=== PATIENT | male | born 1940 | race Caucasian/White ===

== ENCOUNTER 2022-08-12 09:16 | Emergency (ER) | payer OTHER ==
[~2022-08-12] VITALS: Ht 180.3 cm; Wt 99.8 kg
[2022-08-12 09:49] LABS: BASOPHILS ABSOLUTE AUTO 0.04 K/mm3 (0.00-0.23); BASOPHILS PERCENT AUTO 1 % (0-2); EOSINOPHILS ABSOLUTE AUTO 0.15 K/mm3 (0.00-0.68); EOSINOPHILS PERCENT AUTO 2 % (0-6); Hematocrit 43.3 % (37.0-53.0); Hemoglobin 14.8 g/dL (13.5-17.5); IMMATURE GRAN ABSOLUTE AUTO 0.03 K/mm3 (0.00-0.10); IMMATURE GRAN PERCENT AUTO 0 % (0-1); LYMPHOCYTES ABSOLUTE AUTO 1.69 K/mm3 (0.84-5.20); LYMPHOCYTES PERCENT AUTO 23 % (21-46); MONOCYTES ABSOLUTE AUTO 0.57 K/mm3 (0.16-1.47); MONOCYTES PERCENT AUTO 8 % (4-13); Mean Corpuscular HGB 31.1 pg (26.0-34.0); Mean Corpuscular HGB Conc 34.2 g/dL (31.5-36.5); Mean Corpuscular Volume 91 fL (80-100); Mean Platelet Volume 8.7 fL (9.1-12.4); NEUTROPHILS ABSOLUTE AUTO 4.74 K/mm3 (1.96-9.15); NEUTROPHILS PERCENT AUTO 66 % (41-73); Platelet Count 246 K/mm3 (150-400); RDW Standard Deviation 43.4 fL (35.1-46.3); Red Blood Cell Count 4.76 M/mm3 (4.30-5.90); White Blood Cell Count 7.22 K/mm3 (4.00-11.30)
[2022-08-12 10:22] LABS: Albumin, Blood 3.2 g/dL (3.4-5.0); Bilirubin, Total 0.8 mg/dL (0.1-1.0); Bun/Creatinine Ratio 22.5 (12.0-20.0); Calcium, Blood 8.2 mg/dL (8.5-10.1); Creatinine, Blood 0.71 mg/dL (0.60-1.20); Globulin, Blood 3.2 g/dL (2.2-4.0); Potassium, Blood 4.1 mmol/L (3.5-5.5); Total Protein, Blood 6.4 g/dL (6.4-8.2)
[2022-08-12] MEDS ORDERED: DIPATR PO (12:37)
== END 2022-08-12 12:48 | disposition home or self-care (01) ==
LOC: ER 09:16
PROVIDERS: Physician Assistant
DX: A08.4 Viral intestinal infection, unspecified (principal)
CPT/HCPCS: 80053; 85025

== ENCOUNTER 2022-08-25 08:31 | Emergency (ER) | payer OTHER ==
[~2022-08-25] VITALS: Ht 177.8 cm; Wt 108.9 kg
[~2022-08-25 08:31] MED LIST: DIPATR PO
[2022-08-25 10:21] LABS: BASOPHILS ABSOLUTE AUTO 0.05 K/mm3 (0.00-0.23); BASOPHILS PERCENT AUTO 1 % (0-2); EOSINOPHILS ABSOLUTE AUTO 0.14 K/mm3 (0.00-0.68); EOSINOPHILS PERCENT AUTO 2 % (0-6); Hematocrit 50.8 % (37.0-53.0); Hemoglobin 17.5 g/dL (13.5-17.5); IMMATURE GRAN ABSOLUTE AUTO 0.03 K/mm3 (0.00-0.10); IMMATURE GRAN PERCENT AUTO 0 % (0-1); LYMPHOCYTES ABSOLUTE AUTO 2.18 K/mm3 (0.84-5.20); LYMPHOCYTES PERCENT AUTO 26 % (21-46); MONOCYTES PERCENT AUTO 8 % (4-13); Mean Corpuscular HGB 30.6 pg (26.0-34.0); Mean Corpuscular HGB Conc 34.4 g/dL (31.5-36.5); Mean Corpuscular Volume 89 fL (80-100); Mean Platelet Volume 8.8 fL (9.1-12.4); NEUTROPHILS ABSOLUTE AUTO 5.34 K/mm3 (1.96-9.15); NEUTROPHILS PERCENT AUTO 63 % (41-73); Platelet Count 279 K/mm3 (150-400); RDW Coefficient Variation 12.4 % (11.7-14.2); RDW Standard Deviation 40.3 fL (35.1-46.3); Red Blood Cell Count 5.72 M/mm3 (4.30-5.90); White Blood Cell Count 8.44 K/mm3 (4.00-11.30)
[2022-08-25 10:42] LABS: Albumin, Blood 3.6 g/dL (3.4-5.0); Bilirubin, Total 0.6 mg/dL (0.1-1.0); Bun/Creatinine Ratio 19.5 (12.0-20.0); Calcium, Blood 9.5 mg/dL (8.5-10.1); Creatinine, Blood 0.92 mg/dL (0.60-1.20); Globulin, Blood 3.7 g/dL (2.2-4.0); Potassium, Blood 4.3 mmol/L (3.5-5.5); Total Protein, Blood 7.3 g/dL (6.4-8.2)
[2022-08-25] MEDS ORDERED: JARDIANCE25 MG PO (12:59)
[2022-08-25] MEDS ORDERED: OMEP20ER PO (12:59)
[2022-08-25] MEDS ORDERED: CARBIDOPA-LEVO1 EA18 PO (12:59)
[2022-08-25] MEDS ORDERED: CELEBREX200 MG PO (13:00)
[2022-08-25] MEDS ORDERED: MEMANTINE HCL E28 MG PO (13:00)
[2022-08-25] MEDS ORDERED: LOMOTIL 2.5-0.1 EACH PO (14:43)
== END 2022-08-25 15:18 | disposition home or self-care (01) ==
LOC: ER 08:31
PROVIDERS: Physician Assistant
DX: R19.7 Diarrhea, unspecified (principal); E86.0 Dehydration; G20 Parkinson's disease; Z91.040 Latex allergy status; Z88.8 Allergy status to other drugs, medicaments and biological substances; Z79.899 Other long term (current) drug therapy
CPT/HCPCS: 36415; 74177; 80053; 85025; J2405; J7030; Q9967

== ENCOUNTER 2023-08-23 17:25 | Emergency (ER) | payer OTHER ==
[~2023-08-23] VITALS: Ht 185.4 cm; Wt 90.7 kg
[~2023-08-23 17:25] MED LIST changes: +Almacone Liqui355 ML PO; +CARBIDOPA-LEVO1 EA15 PO; +CARBIDOPA-LEVO1 EA18 PO; +CELEBREX200 MG PO; +DICY20 PO; +DOCU100 PO; +FOSAMAX70 MG PO; +JARDIANCE25 MG PO; +LOMOTIL 2.5-0.1 EACH PO; +MEMANTINE HCL E28 MG PO; +OMEP20ER PO
[2023-08-23 18:55] LABS: BASOPHILS ABSOLUTE AUTO 0.05 K/mm3 (0.00-0.23); BASOPHILS PERCENT AUTO 1 % (0-2); EOSINOPHILS ABSOLUTE AUTO 0.09 K/mm3 (0.00-0.68); EOSINOPHILS PERCENT AUTO 1 % (0-6); Hematocrit 44.7 % (37.0-53.0); Hemoglobin 15.6 g/dL (13.5-17.5); IMMATURE GRAN ABSOLUTE AUTO 0.05 K/mm3 (0.00-0.10); IMMATURE GRAN PERCENT AUTO 1 % (0-1); LYMPHOCYTES ABSOLUTE AUTO 1.27 K/mm3 (0.84-5.20); LYMPHOCYTES PERCENT AUTO 16 % (21-46); MONOCYTES ABSOLUTE AUTO 0.46 K/mm3 (0.16-1.47); MONOCYTES PERCENT AUTO 6 % (4-13); Mean Corpuscular HGB 30.4 pg (26.0-34.0); Mean Corpuscular HGB Conc 34.9 g/dL (31.5-36.5); Mean Corpuscular Volume 87 fL (80-100); NEUTROPHILS ABSOLUTE AUTO 6.21 K/mm3 (1.96-9.15); NEUTROPHILS PERCENT AUTO 76 % (41-73); RDW Coefficient Variation 12.4 % (11.7-14.2); RDW Standard Deviation 39.2 fL (35.1-46.3); Red Blood Cell Count 5.13 M/mm3 (4.30-5.90); White Blood Cell Count 8.13 K/mm3 (4.00-11.30)
[2023-08-23 19:17] LABS: Platelet Count 266 K/mm3 (150-400)
[2023-08-23 19:41] LABS: Albumin, Blood 3.3 g/dL (3.4-5.0); Albumin/Globulin Ratio 0.9 (0.8-1.8); Bilirubin, Total 0.6 mg/dL (0.1-1.0); Bun/Creatinine Ratio 24.4 (12.0-20.0); Calcium, Blood 8.7 mg/dL (8.5-10.1); Creatinine, Blood 0.99 mg/dL (0.60-1.20); Globulin, Blood 3.5 g/dL (2.2-4.0); Potassium, Blood 4.2 mmol/L (3.5-5.5); Total Protein, Blood 6.8 g/dL (6.4-8.2)
[2023-08-23 20:34] LABS: Source, Urine Voided
[2023-08-23 20:37] LABS: Appearance, Urine Clear (Clear); Bilirubin, Urine Neg (Neg); Blood, Urine Neg (Neg); Color, Urine Yellow (P-Yellow); Glucose Qualitative, Urine 3+ (Neg); Ketones, Urine 2+ (Neg); Leukocyte Esterase, Urine Neg (Neg); Nitrite, Urine Neg (Neg); Protein, Urine 2+ (Neg); Urobilinogen, Urine NORM (Normal)
[2023-08-23 20:56] LABS: Amorphous Light (0-Heavy); Bacteria Not Seen /hpf; Mucus Light (0-Heavy); Red Blood Cells, Urine Not Seen /hpf (0-2); Squamous Epithelial Cells Rare /hpf (Few); White Blood Cells, Urine Not Seen /hpf (0-5)
[2023-08-23] MEDS ORDERED: TAMS.4ER PO (21:31)
[2023-08-23 21:45] VITALS: BP 142/80
[2023-09-24] MEDS ORDERED: ZOCOR20 MG PO (15:56)
== END 2023-08-23 22:11 | disposition home or self-care (01) ==
LOC: ER 17:25
PROVIDERS: Student in an Organized Health Care Education/Training Program
DX: G20.A1 Parkinson's disease without dyskinesia, without mention of fluctuations (principal); F02.80 Dementia in other diseases classified elsewhere, unspecified severity, without behavioral disturbance, psychotic disturbance, mood disturbance, and anxiety; R33.9 Retention of urine, unspecified; G30.9 Alzheimer's disease, unspecified; Z79.899 Other long term (current) drug therapy; Z88.8 Allergy status to other drugs, medicaments and biological substances; Z91.040 Latex allergy status; W18.30XA Fall on same level, unspecified, initial encounter
CPT/HCPCS: 51702; 51798; 70450; 80053; 81001; 85025; 93005; 93010; 99285-25

== ENCOUNTER 2023-08-26 22:12 | Emergency (ER) | payer OTHER ==
[~2023-08-26] VITALS: Ht 177.8 cm; Wt 90.7 kg
[~2023-08-26 22:12] MED LIST changes: +TAMS.4ER PO
[2023-08-26 22:52] LABS: Source, Urine Foley catheter
[2023-08-26 23:07] LABS: BASOPHILS ABSOLUTE AUTO 0.05 K/mm3 (0.00-0.23); BASOPHILS PERCENT AUTO 1 % (0-2); EOSINOPHILS ABSOLUTE AUTO 0.18 K/mm3 (0.00-0.68); EOSINOPHILS PERCENT AUTO 3 % (0-6); Hematocrit 45.2 % (37.0-53.0); Hemoglobin 15.7 g/dL (13.5-17.5); IMMATURE GRAN ABSOLUTE AUTO 0.03 K/mm3 (0.00-0.10); IMMATURE GRAN PERCENT AUTO 0 % (0-1); LYMPHOCYTES ABSOLUTE AUTO 1.77 K/mm3 (0.84-5.20); LYMPHOCYTES PERCENT AUTO 25 % (21-46); MONOCYTES ABSOLUTE AUTO 0.54 K/mm3 (0.16-1.47); MONOCYTES PERCENT AUTO 8 % (4-13); Mean Corpuscular HGB 30.5 pg (26.0-34.0); Mean Corpuscular HGB Conc 34.7 g/dL (31.5-36.5); Mean Corpuscular Volume 88 fL (80-100); Mean Platelet Volume 8.9 fL (9.1-12.4); NEUTROPHILS ABSOLUTE AUTO 4.48 K/mm3 (1.96-9.15); NEUTROPHILS PERCENT AUTO 64 % (41-73); Platelet Count 274 K/mm3 (150-400); RDW Standard Deviation 38.5 fL (35.1-46.3); Red Blood Cell Count 5.14 M/mm3 (4.30-5.90); White Blood Cell Count 7.05 K/mm3 (4.00-11.30)
[2023-08-26 23:08] LABS: Bilirubin, Urine Neg (Neg); Blood, Urine 5+ (Neg); Glucose Qualitative, Urine 4+ (Neg); Ketones, Urine 2+ (Neg); Leukocyte Esterase, Urine 2+ (Neg); Nitrite, Urine Neg (Neg); Protein, Urine 3+ (Neg); Urobilinogen, Urine 2+ (Normal)
[2023-08-26 23:17] LABS: Albumin, Blood 3.2 g/dL (3.4-5.0); Albumin/Globulin Ratio 0.8 (0.8-1.8); Bilirubin, Total 0.6 mg/dL (0.1-1.0); Calcium, Blood 8.9 mg/dL (8.5-10.1); Creatinine, Blood 0.78 mg/dL (0.60-1.20); Globulin, Blood 3.8 g/dL (2.2-4.0)
[2023-08-26 23:29] LABS: Appearance, Urine Hazy (Clear); Color, Urine Yellow (P-Yellow)
[2023-08-26 23:31] LABS: Red Blood Cells, Urine TNTC /hpf (0-2); Squamous Epithelial Cells Few /hpf (Few)
[2023-08-26 23:32] LABS: Bacteria Many /hpf; Hyaline Casts 0-2 /lpf (0-2)
[2023-08-27 01:00] VITALS: BP 137/77
[2023-08-27 01:04] LABS: Influenza A, PCR NEGATIVE (NEGATIVE); Influenza B, PCR NEGATIVE (NEGATIVE); Resp Syncytial Virus, PCR NEGATIVE (NEGATIVE); SARS-Cov-2 (COVID-19) PCR, MMC NEGATIVE (NEGATIVE)
[2023-08-27 01:06] LABS: Source, Urine Foley catheter
[2023-08-27 01:10] LABS: Bilirubin, Urine Neg (Neg); Blood, Urine 5+ (Neg); Glucose Qualitative, Urine 2+ (Neg); Ketones, Urine 3+ (Neg); Leukocyte Esterase, Urine 2+ (Neg); Nitrite, Urine Neg (Neg); Protein, Urine 3+ (Neg); Specific Gravity, Urine 1.025 (1.003-1.022); Urobilinogen, Urine 2+ (Normal)
[2023-08-27 01:18] LABS: Appearance, Urine Hazy (Clear); Color, Urine Yellow (P-Yellow)
[2023-08-27 01:21] LABS: Bacteria Many /hpf; Red Blood Cells, Urine 50-100 /hpf (0-2); Squamous Epithelial Cells Few /hpf (Few)
[2023-08-27 01:22] LABS: Hyaline Casts 0-2 /lpf (0-2)
[2023-08-27] MEDS ORDERED: CEPH500 PO (02:38)
== END 2023-08-27 03:00 | disposition home or self-care (01) ==
LOC: ER 22:12
PROVIDERS: Emergency Medicine; Student in an Organized Health Care Education/Training Program
DX: N39.0 Urinary tract infection, site not specified (principal); Z91.040 Latex allergy status; Z88.8 Allergy status to other drugs, medicaments and biological substances; Z79.899 Other long term (current) drug therapy
CPT/HCPCS: 0241U; 51702; 80053; 81001; 83605; 85025; 96361; 96365; 99285-25; J0696; J7030

== ENCOUNTER 2024-02-14 12:12 | Inpatient (IN) | payer OTHER ==
[~2024-02-14] VITALS: Ht 172.7 cm; Wt 79.4 kg
[~2024-02-14 12:12] MED LIST changes: +CEPH500 PO; +ZOCOR20 MG PO
[2024-02-14] MEDS ORDERED: Lactated Ringer's 1,000 ML IV SCH (12:50)
[2024-02-14 13:04] LABS: BASOPHILS ABSOLUTE AUTO 0.09 K/mm3 (0.00-0.23); BASOPHILS PERCENT AUTO 1 % (0-2); EOSINOPHILS ABSOLUTE AUTO 0.47 K/mm3 (0.00-0.68); EOSINOPHILS PERCENT AUTO 2 % (0-6); Hematocrit 44.4 % (37.0-53.0); Hemoglobin 14.7 g/dL (13.5-17.5); IMMATURE GRAN ABSOLUTE AUTO 0.14 K/mm3 (0.00-0.10); IMMATURE GRAN PERCENT AUTO 1 % (0-1); LYMPHOCYTES ABSOLUTE AUTO 2.45 K/mm3 (0.84-5.20); LYMPHOCYTES PERCENT AUTO 13 % (21-46); MONOCYTES ABSOLUTE AUTO 1.51 K/mm3 (0.16-1.47); MONOCYTES PERCENT AUTO 8 % (4-13); Mean Corpuscular HGB 30.4 pg (26.0-34.0); Mean Corpuscular HGB Conc 33.1 g/dL (31.5-36.5); Mean Corpuscular Volume 92 fL (80-100); Mean Platelet Volume 9.1 fL (9.1-12.4); NEUTROPHILS ABSOLUTE AUTO 14.69 K/mm3 (1.96-9.15); NEUTROPHILS PERCENT AUTO 76 % (41-73); Platelet Count 265 K/mm3 (150-400); Red Blood Cell Count 4.84 M/mm3 (4.30-5.90); White Blood Cell Count 19.35 K/mm3 (4.00-11.30)
[2024-02-14 13:16] LABS: Albumin, Blood 3.3 g/dL (3.4-5.0); Albumin/Globulin Ratio 0.9 (0.8-1.8); Bilirubin, Total 1.4 mg/dL (0.1-1.0); Bun/Creatinine Ratio 25.6 (12.0-20.0); Calcium, Blood 9.2 mg/dL (8.5-10.1); Creatinine, Blood 1.68 mg/dL (0.60-1.20); Globulin, Blood 3.5 g/dL (2.2-4.0); Potassium, Blood 4.7 mmol/L (3.5-5.5); Total Protein, Blood 6.8 g/dL (6.4-8.2)
[2024-02-14] MEDS ORDERED: Acetaminophen 325 MG TABLET PO PRN (15:20)
[2024-02-14] MEDS ORDERED: NS 1,000 ML IV SCH (15:20)
[2024-02-14 15:44] LABS: Adenovirus F 40/41 Not Detected (NOT DETECT); Astrovirus Not Detected (NOT DETECT); Campylobacter Sp Not Detected (NOT DETECT); Cryptosporidium Not Detected (NOT DETECT); Cyclospora Cayetanensis Not Detected (NOT DETECT); E. Coli O157 Not Detected (NOT DETECT); Entamoeba Histolytica Not Detected (NOT DETECT); Enteroaggregative E. coli-EAEC Not Detected (NOT DETECT); Enteropathogenic E. coli-EPEC Not Detected (NOT DETECT); Enterotoxigenic E. coli-ETEC Not Detected (NOT DETECT); Giardia Lamblia Not Detected (NOT DETECT); Norovirus GI/GII Not Detected (NOT DETECT); Plesiomonas Shigelloides Not Detected (NOT DETECT); Rotavirus A Not Detected (NOT DETECT); Salmonella Sp Not Detected (NOT DETECT); Shiga Toxin-prod E. coli-STEC Not Detected (NOT DETECT); Shigella/Enteroin E. coli-EIEC Not Detected (NOT DETECT); Vibrio Cholerae Not Detected (NOT DETECT); Vibrio Sp Not Detected (NOT DETECT); Yersinia Enterocolitica Not Detected (NOT DETECT)
[2024-02-14 15:45] LABS: Sapovirus Not Detected (NOT DETECT)
[2024-02-14] MEDS ORDERED: TraMADol HCl 50 MG Tab PO PRN (15:45)
[2024-02-14] MEDS ORDERED: Witch Hazel/Glycerin PADS TOP PRN (15:55)
[2024-02-14] MEDS ORDERED: Insulin Regular 100 UNIT/ML 10ML Vial SC SCH (16:30)
[2024-02-14] MEDS ORDERED: Levodopa/Carbidopa 100 / 25 MG Tab PO SCH (17:00)
[2024-02-14] MEDS ORDERED: Atorvastatin 10 MG Tab PO SCH (18:00)
[2024-02-14] MEDS ORDERED: CODACE30 PO (19:27)
[2024-02-14 20:24] VITALS: BP 107/73
[2024-02-14] MEDS ORDERED: Metoprolol Tartrate 1 MG/ML 5 ML VIAL IV ONE (20:35)
[2024-02-14] MEDS ORDERED: Memantine HCL 5 MG Tab PO SCH (21:00)
[2024-02-15 04:20] VITALS: BP 112/58
--- NOTE | 2024-02-15 04:53 | NUR ---
SHIFT SUMMARY PATIENT IS ALERT AND ORIENTED TO SELF. PATIENT IS A RECENT ADMIT FROM THE ED. PATIENT HAS BEEN INCREASINGLY CONFUSED AND PULLING AT LINES. PATIENT HAS BEEN IN ISOLATION FOR CDIFF WITH FORMED BOWEL MOVEMENTS. PATIENT HAS BEEN USING CONDOM CATH FOR INCONTINENCE AND FREQUENCY. PATIENT HAS BEEN RUNNING AFIB IN THE 80S. PATIENT HAD SUSTAINED ELEVATED HR AND MEDICATED PER EMAR. PATIENT HAS HAD NO COMPLAINTS OF SOB, NAUSEA, VOMITTING OR PAIN THIS SHIFT. BED IN LOCKED AND LOWEST POSITION. BED ALARM IS ON FOR CONFUSION AND IMPULSIVITY. WILL MONITOR UNTIL SHIFT CHANGE.
[2024-02-15] MEDS ORDERED: Omeprazole 20 MG CapCR PO SCH (06:00)
[2024-02-15 06:02] LABS: BASOPHILS ABSOLUTE AUTO 0.05 K/mm3 (0.00-0.23); BASOPHILS PERCENT AUTO 0 % (0-2); EOSINOPHILS ABSOLUTE AUTO 0.37 K/mm3 (0.00-0.68); EOSINOPHILS PERCENT AUTO 3 % (0-6); Hematocrit 43.2 % (37.0-53.0); Hemoglobin 14.4 g/dL (13.5-17.5); IMMATURE GRAN ABSOLUTE AUTO 0.07 K/mm3 (0.00-0.10); IMMATURE GRAN PERCENT AUTO 1 % (0-1); LYMPHOCYTES ABSOLUTE AUTO 1.56 K/mm3 (0.84-5.20); LYMPHOCYTES PERCENT AUTO 11 % (21-46); MONOCYTES ABSOLUTE AUTO 0.95 K/mm3 (0.16-1.47); MONOCYTES PERCENT AUTO 7 % (4-13); Mean Corpuscular HGB 30.1 pg (26.0-34.0); Mean Corpuscular HGB Conc 33.3 g/dL (31.5-36.5); Mean Corpuscular Volume 90 fL (80-100); Mean Platelet Volume 9.1 fL (9.1-12.4); NEUTROPHILS ABSOLUTE AUTO 10.83 K/mm3 (1.96-9.15); NEUTROPHILS PERCENT AUTO 78 % (41-73); Platelet Count 259 K/mm3 (150-400); RDW Coefficient Variation 13.1 % (11.7-14.2); RDW Standard Deviation 43.3 fL (35.1-46.3); Red Blood Cell Count 4.78 M/mm3 (4.30-5.90); White Blood Cell Count 13.83 K/mm3 (4.00-11.30)
[2024-02-15 06:31] LABS: Bun/Creatinine Ratio 38.2 (12.0-20.0); Calcium, Blood 9.3 mg/dL (8.5-10.1); Creatinine, Blood 0.99 mg/dL (0.60-1.20); Potassium, Blood 4.3 mmol/L (3.5-5.5)
[2024-02-15 07:44] VITALS: BP 167/52
[2024-02-15] MEDS ORDERED: Vancomycin HCl 125 MG Cap PO SCH (09:00)
[2024-02-15] MEDS ORDERED: Enoxaparin 40 MG/0.4 ML SYR SC SCH (09:00)
[2024-02-15 15:05] VITALS: BP 125/85
--- NOTE | 2024-02-15 18:02 | NUR ---
SHIFT SUMMARY: PATIENT A/O TO SELF ONLY, PLEASANTLY CONFUSED AND FOLLOW SIMPLE COMMAND. PATIENT INCON OF BOWEL/BLADDER AND HAD 3 LOOSE BROWN BM THIS SHIFT. PATIENT MEDICATED X1 FOR PAIN PER EMAR c GOOD EFFECT. PATIENT HAD PT EVAL TODAY. PT RECOMMENDING SNF. PATIENT HAS A FAIR APPETITE c FEED ASSIST. SPOUSE HAS BEEN ASSISTING PATIENT c HIS MEALS. CONSUELO-SPOUSE PLANS TO STAY OVERNIGHT FOR EMOTIONAL SUPPORT. DR. DAMON AND OPERATION MANAGER-CYNTHIA ARE AWARE OF THIS. VITAL SIGNS REVIEWED. PATIENT DENIES CP/PRESSURE, SOB AND DIZZINESS. PIV TO L WRIST INFUSING NS AT 100 MLS/HR. BED ALARM ON FOR SAFETY. CALL LIGHT IN REACH.
[2024-02-15 21:14] VITALS: BP 116/69
--- NOTE | 2024-02-16 03:49 | NUR ---
COTTON PICKER SUMMARY VSS. ALERT AND ORIENTED X 2 - SELF AND FAMILY. IVF OF NS INFUSING AT 100 ML/HR FOR HYDRATION. TOLERATES MDS WITH APPLESAUCE WITH ASPIRATION PRECAUTIONS. MONITORING FOR LOOSE STOOLS. ON ENTERIC PRECAUTIONS FOR C-DIFF. HOB ELEVATED, CALL LIGHT IN REACH, BED IN LOW POSITION AND RAILS UP X 3 FOR SAFETY. HAS BEEN RESTING QUIETLY WITH OCCASIONAL INTERRUPTIONS. WILL CONTINUE TO MONITOR
[2024-02-16 04:02] VITALS: BP 125/82
[2024-02-16 07:56] VITALS: BP 147/80
--- NOTE | 2024-02-16 11:24 | NUR ---
NOTE: PATIENT VOIDED SMALL AMOUNT OF URINE IN ATTENDS. PATIENT REPORTS DISCOMFORT TO SUPRAPUBIC REGION, BLADDER SCAN WERE PERFORMED APPEARED 999 MLS IN BLADDER. NOTIFIED DR. NELSON pardo THIS ISSUE. RECEIVED ORDER TO PERFORMED IN/OUT CATH AND REPEAT BLADDER SCAN THIS PM IF PATIENT RETAINING MORE THAN 400 MLS IN BLADDER PLACED HALEY CATHETER.
--- NOTE | 2024-02-16 12:18 | NUR ---
IN/OUT CATH NOTE: PERFORMED IN/OUT CATH PER ORDER AND DRAINED 1650 MLS DARK TEA COLOR URINE OUT. PATIENT TOLERATED WELL T/O THE PROCESS AND REPORTS DISCOMFORT TO SUPRAPUBIC REGION HAS IMPROVED, STATED "IT'S GOOD NOW."
[2024-02-16 14:49] VITALS: BP 138/91
--- NOTE | 2024-02-16 17:00 | NUR ---
SHIFT SUMMARY: PATIENT A/O TO SELF AND FAMILY AT BEDSIDE. PATIENT IS PLEASANTLY CONFUSED AND EASILY REDIRECTABLE. PATIENT HAD ONE INCONTIN SOFT, BROWN, BM THIS SHIFT. REPEAT BLADDER SCAN AT 1647 SHOWED 336 MLS IN BLADDER, WCTM. PATIENT MEDICATED X1 FOR GENERALIZED PAIN PER EMAR. PATIENT HAS MOD APPETITE c FEED ASSIST. PATIENT DENIES CP/PRESSURE, N/V, DIZZINESS AND SOB. PATIENT REPOSITIONED AND HAS BEEN RESTING IN BED ON/OFF T/O SHIFT. VITAL SIGNS REVIEWED. BED ALARM ON FOR SAFETY. CALL LIGHT IN REACH. FAMILY'S AT BEDSIDE T/O THE DAY. PATIENT AND FAMILY HAS NO COMPLAINTS OR DENIES NEW CONCERNED THIS SHIFT.
[2024-02-16 20:55] VITALS: BP 118/71
[2024-02-16] MEDS ORDERED: Famotidine 20 MG Tab PO SCH (21:00)
--- NOTE | 2024-02-16 21:31 | NUR ---
TOOK OVER FOR PRIMARY NURSE WHEN HE TOOK HIS BREAK. PRIMARY NURSE WAS TRYING TO GET LEO OF WHEN IT WAS TIME FOR HIS BREAK. PRIMARY NURSE WAS TRYING TO GET ORDER FOR HALEY CATHETER DUE TO ACUTE RETENTION. LAST BLADDER SCAN OF 439. MD APPROVED ORDER FOR HALEY CATHETER PLACEMENT. PT DENIES NEEDS AT THIS TIME.
--- NOTE | 2024-02-17 04:17 | NUR ---
SLATER APPRENTICE SUMMARY VSS. PT HAVING DIFFICULTY WITH RETAINING URINE, STRAIGHT CATHED ON DAY SHIFT, DAY SHIFT RN REPORTED THAT MD WANTED PT TO BE BLADDER SCANNED AND IF OVER 400 CC NOTED, THAT HE SHOULD HAVE HALEY INSERTED. BLADDER SCAN 439. CALLED MD, NOTIFIED AND HALEY CATH ORDER OBTAINED, HALEY PLACED WITH STERILE TECHNIQUE. DRAINING CRESENCIO/TEA COLORED. CONTINUES TO TAKE PO VANCO, STOOL MORE SOLID. NO NOTED DIARRHEA. HAS BEEN RESTING QUIETLY WITH FEW INTERRUPTIONS. REMAINS ON CONTACT ISOLATION PRECAUTIONS FOR C-DIFF. CALL LIGHT IN REACH, RAILS UP X 2 AND BED IN LOW POSITION FOR SAFETY. WILL CONTINUE TO MONITOR.
--- NOTE | 2024-02-17 04:25 | NUR ---
ASSUMED CARE OF PT WHEN PRIMARY RN ON BREAK. PT DENIES NEEDS AT THIS TIME.
[2024-02-17 06:17] VITALS: BP 141/89
[2024-02-17 07:38] VITALS: BP 126/65
[2024-02-17 08:25] LABS: BASOPHILS ABSOLUTE AUTO 0.06 K/mm3 (0.00-0.23); BASOPHILS PERCENT AUTO 1 % (0-2); EOSINOPHILS ABSOLUTE AUTO 0.29 K/mm3 (0.00-0.68); EOSINOPHILS PERCENT AUTO 4 % (0-6); Hematocrit 39.4 % (37.0-53.0); Hemoglobin 13.6 g/dL (13.5-17.5); IMMATURE GRAN ABSOLUTE AUTO 0.04 K/mm3 (0.00-0.10); IMMATURE GRAN PERCENT AUTO 1 % (0-1); LYMPHOCYTES ABSOLUTE AUTO 1.61 K/mm3 (0.84-5.20); LYMPHOCYTES PERCENT AUTO 21 % (21-46); MONOCYTES ABSOLUTE AUTO 0.76 K/mm3 (0.16-1.47); MONOCYTES PERCENT AUTO 10 % (4-13); Mean Corpuscular HGB 30.7 pg (26.0-34.0); Mean Corpuscular HGB Conc 34.5 g/dL (31.5-36.5); Mean Corpuscular Volume 89 fL (80-100); NEUTROPHILS PERCENT AUTO 64 % (41-73); Platelet Count 282 K/mm3 (150-400); RDW Coefficient Variation 13.1 % (11.7-14.2); RDW Standard Deviation 42.6 fL (35.1-46.3); Red Blood Cell Count 4.43 M/mm3 (4.30-5.90); White Blood Cell Count 7.66 K/mm3 (4.00-11.30)
[2024-02-17 08:39] LABS: Bun/Creatinine Ratio 24.8 (12.0-20.0); Calcium, Blood 8.6 mg/dL (8.5-10.1); Creatinine, Blood 0.77 mg/dL (0.60-1.20); Potassium, Blood 3.9 mmol/L (3.5-5.5)
[2024-02-17 15:59] VITALS: BP 133/67
[2024-02-17] MEDS ORDERED: Tamsulosin HCl 0.4 MG Cap PO SCH (18:00)
--- NOTE | 2024-02-17 18:33 | NUR ---
SHIFT SUMMARY A&OX1, COOPERATIVE WITH ORIENTED. REDIRECTABLE. DENIED ANY CP/PRESSURE, HEADACHE, DIZZINESS, OR, SOB. NO COMPLAINTS OF PAIN THIS SHIFT. APPETITE INCREASED T/O SHIFT. FLUID INTAKE FAIR. HALEY CATHETER DRAINING DARK YELLOW URINE. NO BM THIS SHIFT. BED ALARM ON. BED IN THE LOWEST POSITION. [facility]ACH.
[2024-02-17 19:24] VITALS: BP 130/57
[2024-02-18 05:03] VITALS: BP 115/73
--- NOTE | 2024-02-18 05:53 | NUR ---
ART EDITOR SUMMARY VSS. SOMEWHAT DEFIANT WITH TREATMENT TONIGHT. SOME LOSS OF MEMORY SPEAKING TO STAFF. HALEY DRAINING CRESENCIO. HOB ELEVATED FOR COMFORT. HAS BEEN RESTING QUIETLY AT INTERVALS. PULLED OUT IV, REFUSING TO ALLOW ANOTHER AT THIS TIME. TOLERATING PO FLUIDS AND DIET BETTER THAN YESTERDAY. REPOSITIONED IN BED WITH ASSIST FROM STAFF WHEN HE ALLOWED THEM TO. CALL LIGHT IN REACH, RAILS UP X 2 AND BED IN LOW POSITION FOR SAFETY. ISOLATION PRECAUTIONS MAINTAINED FOR C-DIFF. WILL CONTINUE TO MONITOR
[2024-02-18 08:01] VITALS: BP 147/61
[2024-02-18 15:46] VITALS: BP 125/70
--- NOTE | 2024-02-18 17:26 | NUR ---
SHIFT SUMMARY A&OX1, DIFFICULT TO COMMINUCATE. REDIRECTABLE. NO ACUTE CHANGES THIS SHIFT. ISO PRECAUTIONS FOR CDIFF. LBM ON 02/15. APPETITE AND HYDRATION INCREASING. HALEY PATENT AND DRAINING CRESENCIO COLORED URINE. REPOSITIONED BY AND HIMSELF T/O SHIFT. DENIED ANY PAIN, CP/PRESSURE, HEADACHE, OR SOB. VSS. AND DAUGHTER CURRENTLY AT BEDSIDE. BED IN THE LOWEST POSITION. CALL LIGHT WITHIN REACH.
[2024-02-18 20:43] VITALS: BP 155/74
[2024-02-19 03:23] VITALS: BP 145/71
--- NOTE | 2024-02-19 05:12 | NUR ---
SHIFT SUMMARY. PATIENT IS A&OX1-2. PATIENT IS PLEASANT AND COOPERATIVE WITH CARE. IV PLACED THIS SHIFT IN RIGHT HAND. PATIENT RESTING MOST OF SHIFT WITH RESPIRATIONS EQUAL AND UNLABORED. CATHETER IS PATENT AND DRAINING DARK YELLOW URINE TO GRAVITY. PATIENT IS COOPERATIVE WITH CARE AND ABLE TO ASSIST IN THE ROLLING AND REPOSITIONING BY GRABBING BED RAIL AND BENDING LEG. PATIENT IS IN ISOLATION FOR C-DIFF. BED IS LOCKED IN THE LOWEST POSITION WTIH CALL LIGHT IN REACH. CARE IS ONGOING.
--- NOTE | 2024-02-19 07:13 | NUR ---
ASSUMED CARE: PT RESTING IN BED AT THIS TIME. NO ACUTE NEEDS OR CONCERNS NOTED.
[2024-02-19 07:34] VITALS: BP 128/62
[2024-02-19 15:52] VITALS: BP 136/94
--- NOTE | 2024-02-19 18:27 | NUR ---
SHIFT SUMMARY: PT HAS BEEN RESTING IN BED THIS SHIFT. PT'S SPOUSE AT BEDSIDE MOST OF DAY. AWAITING PLACEMENT. NO ACUTE NEEDS OR CONCERNS AT THIS TIME.
[2024-02-19 19:13] VITALS: BP 137/71
[2024-02-20 03:38] VITALS: BP 127/70
--- NOTE | 2024-02-20 04:37 | NUR ---
SHIFT SUMMARY PT CONTINUES ON ISOLATION PROTOCOL/PRECAUTIONS D/T HX OF C-DIFF. PT IS A&O X3-4, PLEASANT AND COOP WITH CARE. PT IS ON RA AND PO ANTIBIOTICS. BOWEL TONES HYPOACTIVE, NO BM DURING THIS SHIFT.AFEBRILE. PT DENIES PAIN OR DISCOMFORT DURING THIS SHIFT. NO ACUTE EVENTS OR DISTRESS NOTED DURING THIS SHIFT, WILL HANDOFF TO THE INCOMING SHIFT NURSE. BED AT THE LOWEST POSITION, CALL LIGHT IN REACH.
[2024-02-20 07:44] VITALS: BP 122/73
[2024-02-20 15:38] VITALS: BP 119/57
[2024-02-20] MEDS ORDERED: ATOR10 PO (16:06)
[2024-02-20] MEDS ORDERED: Acetaminophen650 M1 PO (16:06)
[2024-02-20] MEDS ORDERED: TAMS.4ER PO (16:07)
[2024-02-20] MEDS ORDERED: FAMO20 PO (16:07)
[2024-02-20] MEDS ORDERED: TRAM50 PO (16:08)
[2024-02-20] MEDS ORDERED: Vancocin HCl125 MG PO (16:09)
--- NOTE | 2024-02-20 18:04 | NUR ---
DISCHARGE NOTE PATIENT ORIENTED X2 WITH EXPRESSIVE APHASIA. ABLE TO ANSWER YES OR NO QUESTIONS EASILY. PATIENT HAD SHOWER THIS AM AND IS 2 PERSON ASSIST WITH TRANSFERS. HALEY CATHETER IN PLACE, DRAINING YELLOW URINE WITH NO CONCERNS. PATIENT DENIED PAIN THIS SHIFT, AT BEDSIDE DURING DISCHARGE AND THROUGHOUT THE DAY. PATIENT LEFT VIA [employer]SP[facility]. REPORT GIV[facility] TO DEVON[facility] AT [facility]. BELONGINGS SENT WITH PATIENT'S .
== END 2024-02-20 18:00 | DRG 871 ==
LOC: ER 12:12 → MEDS 12:13
PROVIDERS: Emergency Medicine; ADMIT Internal Medicine
PROC: 0T9B70Z Drainage of Bladder with Drainage Device, Via Natural or Artificial Opening (ICD-10-PCS; principal; 2024-02-14)
PROC: 3E03329 Introduction of Other Anti-infective into Peripheral Vein, Percutaneous Approach (ICD-10-PCS; 2024-02-14)
DX: A41.9 Sepsis, unspecified organism (principal); G92.8 Other toxic encephalopathy; A04.72 Enterocolitis due to Clostridium difficile, not specified as recurrent; N17.9 Acute kidney failure, unspecified; F02.811 Dementia in other diseases classified elsewhere, unspecified severity, with agitation; E86.0 Dehydration; G20.A1 Parkinson's disease without dyskinesia, without mention of fluctuations; E11.22 Type 2 diabetes mellitus with diabetic chronic kidney disease; N18.30 Chronic kidney disease, stage 3 unspecified; F43.12 Post-traumatic stress disorder, chronic; E78.5 Hyperlipidemia, unspecified; R33.9 Retention of urine, unspecified; M81.0 Age-related osteoporosis without current pathological fracture; Z87.442 Personal history of urinary calculi; Z87.81 Personal history of (healed) traumatic fracture; E55.9 Vitamin D deficiency, unspecified; E21.0 Primary hyperparathyroidism; Z88.8 Allergy status to other drugs, medicaments and biological substances; Z91.040 Latex allergy status; Z79.899 Other long term (current) drug therapy; Z98.890 Other specified postprocedural states; Z87.11 Personal history of peptic ulcer disease
CPT/HCPCS: 36415; 80048; 80053; 82947; 85025; 87324; 87507; 93005; 93010; 96372; 96374; 97110; 97161; 97530; 99285-25; A9270; G0378; J1650; J1815; J7030; J7120

== ENCOUNTER 2024-06-30 16:54 | Emergency (ER) | payer OTHER ==
[~2024-06-30] VITALS: Ht 188 cm; Wt 81.7 kg
[~2024-06-30 16:54] MED LIST changes: +ATOR10 PO; +Acetaminophen650 M1 PO; +CODACE30 PO; +FAMO20 PO; +TRAM50 PO; +Vancocin HCl125 MG PO
[2024-06-30] MEDS ORDERED: ALEN70 PO (17:30)
[2024-06-30] MEDS ORDERED: CELE200 PO (17:31)
[2024-06-30] MEDS ORDERED: Vitamin D2000 UNIT PO (17:32)
[2024-06-30 17:46] LABS: BASOPHILS ABSOLUTE AUTO 0.06 K/mm3 (0.00-0.23); BASOPHILS PERCENT AUTO 1 % (0-2); EOSINOPHILS ABSOLUTE AUTO 0.27 K/mm3 (0.00-0.68); EOSINOPHILS PERCENT AUTO 3 % (0-6); Hematocrit 46.1 % (37.0-53.0); Hemoglobin 15.7 g/dL (13.5-17.5); IMMATURE GRAN ABSOLUTE AUTO 0.07 K/mm3 (0.00-0.10); IMMATURE GRAN PERCENT AUTO 1 % (0-1); LYMPHOCYTES ABSOLUTE AUTO 2.06 K/mm3 (0.84-5.20); LYMPHOCYTES PERCENT AUTO 21 % (21-46); MONOCYTES ABSOLUTE AUTO 0.72 K/mm3 (0.16-1.47); MONOCYTES PERCENT AUTO 7 % (4-13); Mean Corpuscular HGB 30.2 pg (26.0-34.0); Mean Corpuscular HGB Conc 34.1 g/dL (31.5-36.5); Mean Corpuscular Volume 89 fL (80-100); NEUTROPHILS ABSOLUTE AUTO 6.88 K/mm3 (1.96-9.15); NEUTROPHILS PERCENT AUTO 68 % (41-73); Platelet Count 497 K/mm3 (150-400); RDW Coefficient Variation 12.1 % (11.7-14.2); RDW Standard Deviation 39.8 fL (35.1-46.3); White Blood Cell Count 10.06 K/mm3 (4.00-11.30)
[2024-06-30 18:14] LABS: Albumin, Blood 3.2 g/dL (3.4-5.0); Albumin/Globulin Ratio 0.7 (0.8-1.8); Bilirubin, Total 0.7 mg/dL (0.1-1.0); Calcium, Blood 9.4 mg/dL (8.5-10.1); Creatinine, Blood 0.83 mg/dL (0.60-1.20); Globulin, Blood 4.3 g/dL (2.2-4.0); Potassium, Blood 4.8 mmol/L (3.5-5.5); Total Protein, Blood 7.5 g/dL (6.4-8.2)
[2024-06-30] MEDS ORDERED: NS 1,000 ML IV SCH (19:30)
[2024-06-30 22:02] LABS: Source, Urine Voided
[2024-06-30 22:12] LABS: Bilirubin, Urine Neg (Neg); Blood, Urine 5+ (Neg); Glucose Qualitative, Urine Neg (Neg); Ketones, Urine 1+ (Neg); Leukocyte Esterase, Urine 1+ (Neg); Nitrite, Urine Neg (Neg); Protein, Urine 3+ (Neg); Urobilinogen, Urine NORM (Normal)
[2024-06-30 22:19] LABS: Appearance, Urine Hazy (Clear)
[2024-06-30 22:20] LABS: Amorphous Mod (0-Heavy); Bacteria Rare /hpf; Red Blood Cells, Urine TNTC /hpf (0-2); Squamous Epithelial Cells Not Seen /hpf (Few); White Blood Cells, Urine 0-2 /hpf (0-5)
[2024-06-30 22:21] LABS: Granular Casts 0-2 /lpf (0)
[2024-06-30 23:00] VITALS: BP 113/65
== END 2024-06-30 23:42 | disposition home or self-care (01) ==
LOC: ER 16:54
PROVIDERS: Student in an Organized Health Care Education/Training Program
DX: R31.9 Hematuria, unspecified (principal); G20.A1 Parkinson's disease without dyskinesia, without mention of fluctuations; G30.9 Alzheimer's disease, unspecified; F02.80 Dementia in other diseases classified elsewhere, unspecified severity, without behavioral disturbance, psychotic disturbance, mood disturbance, and anxiety; R47.01 Aphasia; Z91.81 History of falling; Z91.040 Latex allergy status; Z88.8 Allergy status to other drugs, medicaments and biological substances; Z79.1 Long term (current) use of non-steroidal anti-inflammatories (NSAID); Z79.83 Long term (current) use of bisphosphonates; Z79.899 Other long term (current) drug therapy
CPT/HCPCS: 80053; 81001; 82550; 85025; 93005; 93010; 96360; 99284-25; J7030

== ENCOUNTER 2024-09-10 13:08 | Inpatient (IN) | payer OTHER ==
[~2024-09-10] VITALS: Ht 177.8 cm; Wt 90.3 kg
[~2024-09-10 13:08] MED LIST changes: +ALEN70 PO; +ALFU10 PO; +AMOX500 PO; +ATOR20 PO; +CELE200 PO; +CIPR500 PO; +FINA5 PO; +FLAGYL500 M1 PO; +FLUDROCORTISON0.1 M1 PO; +PRESERVISION A1 EAC2 PO; +VISBIOME 112.51 EACH PO; +Vitamin D2000 UNIT PO
[2024-09-10 16:12] LABS: BASOPHILS ABSOLUTE AUTO 0.06 K/mm3 (0.00-0.23); BASOPHILS PERCENT AUTO 1 % (0-2); EOSINOPHILS PERCENT AUTO 2 % (0-6); Hematocrit 42.2 % (37.0-53.0); Hemoglobin 14.3 g/dL (13.5-17.5); IMMATURE GRAN ABSOLUTE AUTO 0.06 K/mm3 (0.00-0.10); IMMATURE GRAN PERCENT AUTO 1 % (0-1); LYMPHOCYTES ABSOLUTE AUTO 1.62 K/mm3 (0.84-5.20); LYMPHOCYTES PERCENT AUTO 12 % (21-46); MONOCYTES ABSOLUTE AUTO 1.22 K/mm3 (0.16-1.47); MONOCYTES PERCENT AUTO 9 % (4-13); Mean Corpuscular HGB 30.4 pg (26.0-34.0); Mean Corpuscular HGB Conc 33.9 g/dL (31.5-36.5); Mean Corpuscular Volume 90 fL (80-100); Mean Platelet Volume 8.4 fL (9.1-12.4); NEUTROPHILS ABSOLUTE AUTO 10.11 K/mm3 (1.96-9.15); NEUTROPHILS PERCENT AUTO 76 % (41-73); Platelet Count 442 K/mm3 (150-400); RDW Coefficient Variation 13.1 % (11.7-14.2); RDW Standard Deviation 43.1 fL (35.1-46.3); Red Blood Cell Count 4.71 M/mm3 (4.30-5.90); White Blood Cell Count 13.27 K/mm3 (4.00-11.30)
[2024-09-10 16:56] LABS: Alanine Aminotransfer (ALT/SGP <6 U/L (12-78); Albumin, Blood 2.8 g/dL (3.4-5.0); Albumin/Globulin Ratio 0.7 (0.8-1.8); Alk Phos 45 U/L (50-136); Anion Gap 9 mmol/L (3-11); Aspartate Aminotrans (AST/SGOT 42 U/L (12-37); Blood Urea Nitrogen 28 mg/dL (8-24); Bun/Creatinine Ratio 36.9 (12.0-20.0); CO2, Blood 27 mmol/L (21-32); Calcium, Blood 9.8 mg/dL (8.5-10.1); Chloride, Blood 107 mmol/L (98-108); Creatinine, Blood 0.76 mg/dL (0.60-1.20); Glomerular Filtration Rate 88 (60-); Glucose, Blood 130 mg/dL (70-99); Potassium, Blood 3.7 mmol/L (3.5-5.5); Sodium, Blood 139 mmol/L (136-145); Total Protein, Blood 6.8 g/dL (6.4-8.2)
[2024-09-10] MEDS ORDERED: MIDO5 PO (17:36)
[2024-09-10] MEDS ORDERED: FLUDROCORTISON0.1 M1 PO (17:36)
[2024-09-10 20:21] LABS: Source, Urine Clean Catch
[2024-09-10 20:33] LABS: Appearance, Urine Cloudy (Clear); Bilirubin, Urine Neg (Neg); Blood, Urine 1+ (Neg); Color, Urine Yellow (P-Yellow); Glucose Qualitative, Urine Neg (Neg); Ketones, Urine 2+ (Neg); Leukocyte Esterase, Urine 1+ (Neg); Nitrite, Urine Neg (Neg); Protein, Urine 2+ (Neg); Urobilinogen, Urine 1+ (Normal)
[2024-09-10] MEDS ORDERED: Lactated Ringer's 1,000 ML IV ONE (20:35)
[2024-09-10 21:00] LABS: Red Blood Cells, Urine 0-2 /hpf (0-2); Squamous Epithelial Cells Few /hpf (Few); White Blood Cells, Urine 0-2 /hpf (0-5)
[2024-09-10 21:01] LABS: Amorphous Light (0-Heavy); Bacteria Mod /hpf; Calcium Oxalate Crystals Many /hpf
[2024-09-10] MEDS ORDERED: Enoxaparin 100 MG/ML 1ML SYR SC ONE (21:50)
[2024-09-11] MEDS ORDERED: NS 1,000 ML IV SCH (02:15)
[2024-09-11] MEDS ORDERED: Ondansetron HCl 2 MG / ML 2ML Vial IV PRN (02:15)
[2024-09-11 02:36] VITALS: BP 147/86
--- NOTE | 2024-09-11 03:36 | NUR ---
ADMIT NOTE FOR 09/11/24 AT 0207 AND SHIFT SUMMARY REPORT WAS CALLED FROM THE ER. PT WAS BROUGHT DOWN ON THE GURNEY AND TRANSFERRED TO THE BED. PT IS VERY CONFUSED AND UNABLE TO FOLLOW DIRECTIONS WHEN ASKED. HES ALERT BUT UNABLE TO ANSWER EVEN YES OR NO QUESTIONS. HES UNABLE TO STATE HIS NAME WHERE HES AT OR THE DAY. HE WILL YELL AND SCREAM WHEN TRYING TO TURN OR CHANGE HIM. HES INC OF B&B WEARS BRIEFS. HE REMAINS A FULL CODE AT THIS TIME. A ORDER WAS PUT IN FOR A PALLIATIVE CARE CONSULT TO EVAL CODE STATUS. I CALLED PALLIATIVE CARE AND LEFT A MESSAGE TO INFORM THEM. I ASKED HIM IF HE WAS HAVING ANY PAIN AND HE YELLED AT ME NO. VSS ON RA SATTING AT 98%. NO C/O NAUSEA. REMAINS ON NS AT 75 X 1 BAG. HE HAS REDNESS TO HIS JESSE AREA, SCROTUM, BUTTOCKS AND BILAT HEELS. I APPLIED A COCCYX PATCH TO COCCYX FOR PROTECTION. HE REQUIRES 2 PERSON FOR REPOSITIONING AND WILL SCREAM OUT. RESTING IN BED AT THIS TIME WITH CALL LIGHT IN REACH AND BED ALARM ON.
[2024-09-11] MEDS ORDERED: Acetaminophen 650 MG Supp PR PRN (07:25)
[2024-09-11 07:36] VITALS: BP 155/91
[2024-09-11 08:22] LABS: BASOPHILS ABSOLUTE AUTO 0.07 K/mm3 (0.00-0.23); BASOPHILS PERCENT AUTO 1 % (0-2); EOSINOPHILS PERCENT AUTO 2 % (0-6); Hematocrit 41.4 % (37.0-53.0); Hemoglobin 13.8 g/dL (13.5-17.5); IMMATURE GRAN ABSOLUTE AUTO 0.06 K/mm3 (0.00-0.10); IMMATURE GRAN PERCENT AUTO 1 % (0-1); LYMPHOCYTES ABSOLUTE AUTO 1.69 K/mm3 (0.84-5.20); LYMPHOCYTES PERCENT AUTO 17 % (21-46); MONOCYTES ABSOLUTE AUTO 1.01 K/mm3 (0.16-1.47); MONOCYTES PERCENT AUTO 10 % (4-13); Mean Corpuscular HGB 29.9 pg (26.0-34.0); Mean Corpuscular HGB Conc 33.3 g/dL (31.5-36.5); Mean Corpuscular Volume 90 fL (80-100); Mean Platelet Volume 8.8 fL (9.1-12.4); NEUTROPHILS ABSOLUTE AUTO 6.92 K/mm3 (1.96-9.15); NEUTROPHILS PERCENT AUTO 70 % (41-73); Platelet Count 419 K/mm3 (150-400); RDW Coefficient Variation 12.9 % (11.7-14.2); RDW Standard Deviation 42.7 fL (35.1-46.3); Red Blood Cell Count 4.61 M/mm3 (4.30-5.90); White Blood Cell Count 9.95 K/mm3 (4.00-11.30)
[2024-09-11] MEDS ORDERED: Alendronate Sodium 70 MG Tablet PO SCH (08:50)
[2024-09-11] MEDS ORDERED: Finasteride 5 MG Tab PO SCH (09:00)
[2024-09-11] MEDS ORDERED: Cholecalciferol 1000 Unit Tablet (=25MCG) PO SCH (09:00)
[2024-09-11] MEDS ORDERED: Beta-Carotene (A) W-C & E/Min 1 Tab PO SCH (09:00)
[2024-09-11] MEDS ORDERED: Fludrocortisone Acetate 0.1 MG Tab PO SCH (09:00)
[2024-09-11] MEDS ORDERED: Midodrine 2.5 MG Tab PO SCH (09:00)
[2024-09-11] MEDS ORDERED: Levodopa/Carbidopa 100 / 25 MG Tab PO SCH (09:00)
[2024-09-11] MEDS ORDERED: Atorvastatin 10 MG Tab PO SCH (09:00)
[2024-09-11] MEDS ORDERED: Memantine HCL 5 MG Tab PO SCH (09:00)
[2024-09-11] MEDS ORDERED: Tamsulosin HCl 0.4 MG Cap PO SCH (09:00)
[2024-09-11 09:04] LABS: Anti-Xa UFH, PHA Monitoring 0.38 IU/mL; International Normalized Ratio 1.11; Prothrombin Time Results 11.8 Sec (9.7-11.5)
[2024-09-11] MEDS ORDERED: Dose Adjust by Pharmacy XX STA ×2 (09:10→17:09)
[2024-09-11] MEDS ORDERED: Heparin Sodium,Porcine/0.5 NS 500 ML IV SCH (10:00)
[2024-09-11 12:44] LABS: Adenovirus F 40/41 Not Detected (NOT DETECT); Astrovirus Not Detected (NOT DETECT); Campylobacter Sp Not Detected (NOT DETECT); Cryptosporidium Not Detected (NOT DETECT); Cyclospora Cayetanensis Not Detected (NOT DETECT); E. Coli O157 Not Detected (NOT DETECT); Entamoeba Histolytica Not Detected (NOT DETECT); Enteroaggregative E. coli-EAEC Not Detected (NOT DETECT); Enteropathogenic E. coli-EPEC Not Detected (NOT DETECT); Enterotoxigenic E. coli-ETEC Not Detected (NOT DETECT); Giardia Lamblia Not Detected (NOT DETECT); Norovirus GI/GII Not Detected (NOT DETECT); Plesiomonas Shigelloides Not Detected (NOT DETECT); Rotavirus A Not Detected (NOT DETECT); Salmonella Sp Not Detected (NOT DETECT); Sapovirus Not Detected (NOT DETECT); Shiga Toxin-prod E. coli-STEC Not Detected (NOT DETECT); Shigella/Enteroin E. coli-EIEC Not Detected (NOT DETECT); Vibrio Cholerae Not Detected (NOT DETECT); Vibrio Sp Not Detected (NOT DETECT); Yersinia Enterocolitica Not Detected (NOT DETECT)
[2024-09-11 13:15] VITALS: BP 131/80
[2024-09-11 15:43] LABS: CORONAVIRUS COVID-19 AG Negative (NEGATIVE); INFLUENZA A AG Negative (NEGATIVE); INFLUENZA B AG Negative (NEGATIVE)
[2024-09-11 16:24] VITALS: BP 125/63
[2024-09-11] MEDS ORDERED: Omeprazole 20 MG CapCR PO SCH (16:30)
[2024-09-11 17:47] VITALS: BP 124/57
--- NOTE | 2024-09-11 18:09 | NUR ---
SHIFT SUMMARY PT CONT LEVEL OF CARE. PT ALERT TO SELF ONLY AND ONLY ABLE TO STATE HIS NAME. PT IS ABLE TO ANSWER YES/NO QUESTION. PT NOTED TO BE CONFUSED AND PER FAMILY THIS BASELINE. PT NOTED TO BE ON BEDREST AND ASSIST X2 WITH REPOSITIONING. PT NOTED TO BE INCONT OF BOWEL AND BLADDER. STOOL SAMPLE COLLECTED THIS SHIFT AND PT PLACED IN CONT ISO D/T CDIFF POSITIVE. PT STARTED ON A MINCED AND MOIST DIET THIS SHIFT PER PHYSICIAN. AND NOTED TO TAKE HIS PILLS WHOLE IN APPLESAUSE. PT STARTED ON HEPRIN GTTS THIS SHIFT.
[2024-09-11 20:03] VITALS: BP 125/68
[2024-09-11] MEDS ORDERED: Fidaxomicin 200 MG Tab PO SCH (21:00)
[2024-09-12] MEDS ORDERED: Dose Adjust by Pharmacy XX STA ×2 (00:27→08:35)
[2024-09-12 04:46] VITALS: BP 138/68
--- NOTE | 2024-09-12 05:42 | NUR ---
HOSPITALIST CONTACT AT 0045 PT HAD NOT URINE OUTPUT SINCE START OF SHIFT. BLADDER PALPATION FIRM. PT UNABLE TO VOID. BLADDER SCAN WITH 586MLS. CALL TO HOSPITALIST. NEW ORDER TO STRAIGHT CATH AND RESCAN IN 6 HOURS.
--- NOTE | 2024-09-12 05:48 | NUR ---
CRITICAL PPT AND HEPARIN RATE CHANGE. LAB NOTIFIED OF CRITICAL PPT OF 102 AT APOX 0030. PHARMACY NOTIFIED AND RATE ADJUSTED TO 18U/KG/HR, 32.4. RATE ADUSTED AND NEW BAG OF HEPARIN AT 0038.
--- NOTE | 2024-09-12 05:53 | NUR ---
CRITICAL APTT NOTIFICATION AND HEPARIN RATE CHANGE CALL FROM LAB AT APROX 0030; APTT 102 NOTIFIED PHARMACY, RATE CHANGE TO 18U/KG/HR, 32.4. PT TOLERATING WELL. SECOND RN VERIFIED.
--- NOTE | 2024-09-12 05:54 | NUR ---
GAS MASK ASSEMBLER SUMMARY PT A/OX TO SELF. SEE PREVIOUS NURSE NOTES REGARDING URINE RETENTION AND HEPARIN RATE CHANGE. PT UNABLE TO MAKE NEEDS KNOWN. REGULAR INTERVAL ROUNDING DONE TO ASSESS PT AND MEET NEEDS. CALL LIGHT ACCESSIBLE. NO LOOSE STOOLS THIS SHIFT. PT'S CALLED AT 0530 TO CHECK ON PT. UPDATED SPOUSE REGARDING URINE RETENTION AND STRAIGHT CATH. SPOUSE STATES PT HAS HX OF URINE RETENTION. SPOUSE EXPRESSED WANTING TO TALK WITH DR WHEN ROUNDS TODAY. ADVISED WOULD PASS ON TO ONCOMING NURSE. WCTM PT UNTIL REPORT GIVEN TO ONCOMING NURSE.
[2024-09-12 07:26] LABS: BASOPHILS ABSOLUTE AUTO 0.07 K/mm3 (0.00-0.23); BASOPHILS PERCENT AUTO 1 % (0-2); EOSINOPHILS ABSOLUTE AUTO 0.39 K/mm3 (0.00-0.68); EOSINOPHILS PERCENT AUTO 4 % (0-6); Hematocrit 36.5 % (37.0-53.0); Hemoglobin 12.5 g/dL (13.5-17.5); IMMATURE GRAN ABSOLUTE AUTO 0.09 K/mm3 (0.00-0.10); IMMATURE GRAN PERCENT AUTO 1 % (0-1); LYMPHOCYTES ABSOLUTE AUTO 2.54 K/mm3 (0.84-5.20); LYMPHOCYTES PERCENT AUTO 26 % (21-46); MONOCYTES ABSOLUTE AUTO 0.84 K/mm3 (0.16-1.47); MONOCYTES PERCENT AUTO 9 % (4-13); Mean Corpuscular HGB Conc 34.2 g/dL (31.5-36.5); Mean Corpuscular Volume 88 fL (80-100); Mean Platelet Volume 8.6 fL (9.1-12.4); NEUTROPHILS ABSOLUTE AUTO 5.84 K/mm3 (1.96-9.15); NEUTROPHILS PERCENT AUTO 60 % (41-73); Platelet Count 403 K/mm3 (150-400); RDW Coefficient Variation 12.6 % (11.7-14.2); Red Blood Cell Count 4.16 M/mm3 (4.30-5.90); White Blood Cell Count 9.77 K/mm3 (4.00-11.30)
[2024-09-12 07:35] VITALS: BP 135/70
--- NOTE | 2024-09-12 08:39 | NUR ---
CRITICAL LAB VALUE NOTE: RECEIVED A CALL FROM CREDIT PORTFOLIO MANAGER ELOISE LEBLANC AT 0828. PER TRAY PATIENT HAD CRITICAL LAB VALUE APTT 123.7. NOTIFIED PHARMACIST, ALEKS HOWELL, RECEIVED ORDER TO HOLD HEPARIN GTT FOR AN HOUR AND REDUCED RATE AT 16 U/KG/HR, HEPARIN GTT STOP AT 0835.
[2024-09-12] MEDS ORDERED: TraMADol HCl 50 MG Tab PO PRN (09:55)
[2024-09-12] MEDS ORDERED: Acetaminophen 325 MG TABLET PO PRN (09:55)
[2024-09-12 13:11] VITALS: BP 111/67
[2024-09-12 14:46] VITALS: BP 128/74; BP 128/745
--- NOTE | 2024-09-12 17:35 | NUR ---
SHIFT SUMMARY: PATIENT A/O TO SELF ONLY, CONFUSED c MUMBLED SPEECH. PATIENT MEDICATED X1 FOR GENERALIZED PAIN c MOD EFFECT. PATIENT HAS GREAT APPETITE, FEED ASSIST, INCONTINENT OF BLADDER, ATTENDS PLACED AND CHANGED PRN. PATIENT HAS HAD NO BM THIS SHIFT, MIPELEX DRESSING TO COCCYX C/D/I. BLADDER SCAN Q SHIFT PER ORDER AND WERE DONE AT 1457 c 195 MLS URINE IN BLADDER. PATIENT REPOSITIONED T/O SHIFT c BLE'S ELEVATED ON PILLOWS. PATIENT STARTED ON ELIQUIS-GIVEN AT 1740 AND HEPARIN GTT STOPPED AT THE SAME TIME PER ORDER. PATIENT HAS PALLIATIVE CONSULT, PALLIATIVE CARE RN MIKAYLA, SPOKE TO PATIENT SPOUSE AND DAUGHTER THIS PM REGARDING ADVANCE CARE PLANNING. PATIENT SPOUSE AND DAUGHTER VERBALIZED UNDERSTANDING AND NO FURTHER QUESTIONS. PATIENT CODE STATUS CHANGED TO DNR PER ORDER. PATIENT RECEIVED SCHEDULED MEDS PER EMAR, VITAL SIGNS REVIEWED. BED ALARM ON FOR SAFETY. CALL LIGHT IN REACH.
[2024-09-12 17:37] VITALS: BP 138/68
[2024-09-12] MEDS ORDERED: Apixaban 5 MG Tab PO SCH (18:00)
[2024-09-12 20:30] VITALS: BP 137/73
[2024-09-13 02:55] VITALS: BP 130/81
--- NOTE | 2024-09-13 07:13 | NUR ---
SHIFT SUMMARY. PATIENT IS ALERT TO SELF AND CONFUSED. PATIENT IS BUSY, PULLING AT CLOTHES AND REMOVING BRIEF. HAS HX OF DEMENTIA. PATIENT URINATING BUT HAS RETENTION. BLADDER SCAN SHOWED 494-THIS RN TO STRAIGHT CATH PER PROTOCOL-WHEN RETURNED TO DO STRAIGHT CATH PATIENT HAD VOIDED-POST VOID BLADDER SCAN SHOWED 468ML-STRAIGHT CATH COMPLETED AND DRAINED 590ML'S. PATIENT SLEPT OFF AND ON T/O NIGHT. CALLED FOR AN UPDATE AND LET THIS RN KNOW SHE HAS SOME CONCERNS REGARDING PATIENTS RIGHT ARM- NOTES THAT PATIENTS ARM IS PAINFUL AND HE IS ACTING VERY SIMILAR TO HIS RIGHT ARM HE DID TO HIS LEFT ARM THAT HAS/HAD BLOOD CLOT- WOULD LIKE TO SPEAK TO DOCTOR AND SEE IF IMAGING MIGHT BE AN OPTION TO RULE OUT BLOOD CLOT IN RIGHT ARM; RELAYED WIFES CONCERN TO DAYSHIFT RN. BED IS LOCKED IN THE LOWEST POSITION WITH CALL LIGHT IN REACH. REPORT GIVEN TO DAYSHIFT NURSE.
[2024-09-13 07:59] VITALS: BP 156/77
[2024-09-13 12:54] VITALS: BP 130/68
[2024-09-13 15:15] VITALS: BP 154/77
[2024-09-13 17:13] VITALS: BP 151/77
--- NOTE | 2024-09-13 18:29 | NUR ---
SHIFT SUMMARY: PATIENT HAS HAD NO NEW ACUTE CHANGES THIS SHIFT. PATIENT A/O TO SELF ONLY, MUMBLED SPEECH, CONFUSED. PATIENT MEDICATED X1 FOR GENERALIZED PAIN PER EMAR c GOOD EFFECT. PATIENT FEED ASSIST c ALL MEALS, INCONTINENT OF BLADDER, ATTENDS PLACED, CHANGED AND REPOSITIONED T/O SHIFT. BLADDER SCAN WAS DONE AT 1516 c 202 MLS URINE IN BLADDER. PATIENT HAS HAD NO BM THIS SHIFT. PATIENT HAD PT EVAL TODAY, RECOMMENDING LTC PLACEMENT. VITAL SIGNS REVIEWED. BED ALARM ON FOR SAFETY. CALL LIGHT IN REACH.
[2024-09-13 20:36] VITALS: BP 157/77
[2024-09-14 03:45] VITALS: BP 145/78
--- NOTE | 2024-09-14 05:24 | NUR ---
PHP ARCHITECT REVIEW: PT A&O TO SELF, CONFUSED WITH MUMBLED SPEECH. INCONTINENT OF BOWEL AND BLADDER. NO BM THIS SHIFT. BLADDER SCAN DONE AT APPROX 0115 c 523 MLS URINE IN BLADDER. STRAIGHT CATH DONE WITH 525 ML YELLOW URINE OUT. PT 2 PERSON ASSIST WITH BED MOBILITY. TURNING Q 2 HRS. TOTAL ASSIST WITH TOILETING NEEDS. PLAN FOR LTC PLACEMENT. NO ACUTE CHANGES NOTE THIS SHIFT. BED IN LOWEST POSITION. CARES CONTINUE ORDERED.
--- NOTE | 2024-09-14 06:23 | NUR ---
TRANSFER NOTE / SHIFT SUMMARY: REPORT RECEIVED FROM ASH SANTOS. PT TRANSFERED FROM ER TO RM 341 AT 2039 VIA GURNEY. PT ADMITTED FOR NEW ONSET SEIZURE AND AFIB WITH RVR. TELE IN PLACE; AFIB TRENDING 100'S. HAD AN EPISIODE OF AFIB WITH RVR AROUND 0140 WHILE AMBULATING WITH C/O DIZZINESS. SEE PRIOR NOTE FOR DETAILS. PT WITH CRITICAL LACTIC ACID OF 2.4. MD NOTIFIED, NO NEW ORDERS. A&O X4. MAKES NEEDS KNOWN. AWARE TO CALL FOR ASSIST OUT OF BED. PT INDEPENDENT WITH BED MOBILITY AND AMBULATES WITH SBA IN ROOM FOR SEIZURE PRECAUTIONS. SEIZURE PADS IN PLACE ON BED. PT APPEARS TO HAVE A POSSIBLE DELUSION REGARDING LICE. HE CLAIMS TO HAVE HAD A BODY LICE INFESTAION SINCE JUNE 2024 WITH SORES TO HEAD AND FACE, BUT NONE ARE OBSERVED AT THIS TIME. CONTACT PRECAUTIONS IN PLACE. PT CONTINENT OF BOWEL AND BLADDER. 1/2 NS INFUSION COMPLETE AND SALINE LOCKED. SCHEDULED KEPPRA AND CARDIZEM GIVEN PER EMAR, NO PRN MEDS NEEDED. BED IN LOWEST POSITION. CALL LIGHT IN REACH. CARES CONTINUE ORDERED.
--- NOTE | 2024-09-14 07:02 | NUR ---
TRANSFER NOTE / SHIFT SUMMARY: REPORT RECEIVED FROM ABHISHEK ALEMAN. PT TRANSFERED FROM ER TO ROOM 338 VIA GURNEY AT 2255. PT ADMITTED FOR GI BLEED. ATTENDS IN PLACE FOR RECTAL BLEEDING. CLEANSED AT TIME OF TRANSFER WITH SMEAR OF MIXED MELENA / RICHY BLOOD NOTED. NO FURHTER BLEEDING T/O SHIFT. TELEMETRY IN PLACE TRENDING A FLUTTER 70'S BPM. PT A&O X4. MAKES NEEDS KNOWN. FRIEND / CAREGIVER (BILL) REMAINS AT BEDSIDE. PT ORIENTED TO CALL LIGHT SYSTEM. PT SELF CATHS AT HOME 3-4 TIMES A DAY AND ABLE TO IDENTIFY WHEN HE NEEDS TO CATH. PT CATHED X1 THIS SHFIT SEE PRIOR NOTE FOR DETAILS. LR INFUSING AT 125 ML/HR. PT NPO PER DR. DAMON FOR POSSIBLE SCOPE THIS AFTERNOON. VSS BUT SYSTOLIC BP 90'S-100'S, PT ASYMPTOMATIC. BED IN LOWEST POSITION. CALL LIGHT IN REACH. CARES CONTINUE ORDERED.
[2024-09-14 07:46] VITALS: BP 155/79
--- NOTE | 2024-09-14 13:22 | NUR ---
PATIENT REQUIRES STRAIGHT CATH DUE TO URINARY RETENTION. BLADDER SCAN PERFORMED WITH 397 ML OF URINE NOTED IN BLADDER. STRAIGHT CATH WAS PERFORMED VIA STERILE PROCEDURE WITH A 14 F STRAIGHT CATH. AREA CLEANED WITH BEDADINE. 397 ML OF CRESENCIO URINE RETURNED. PATIENT TOLERATED THE PROCEDURE WELL.
--- NOTE | 2024-09-14 16:16 | NUR ---
CONTACTED DR GUILLERMO REGARDING HEART RATE OF 160-170 AFLUTTER. PER PROVIDER HAVE PHYSICAL THERAPY STOP WORKING WITH PATIENT AND WAIT 30 MINUTES FOR NEW RTHYMN.
--- NOTE | 2024-09-14 17:13 | NUR ---
SHIFT SUMMARY PATIENT IN A/O X1. PATIENT IS UNABLE TO AMBULATE INDEPENDENTLY AND IS A 2 MAX ASSIST. IV PRESENT IN LEFT AC THAT IS SALINE LOCKED. RED BLANCHABLE AREA PRESENT ON COCCYX AND RIGHT HIP. OPTIFOAM PLACED. PATIENT WAS BLADDER SCANNED AND HAD 397 ML NOTED. STRAIGHT CATH PERFORMED WITH 500 ML RETURNED. BLADDER SCAN TO BE REPEATED TWICE A SHIFT. PATIENT RESTING COMFORTABLE IN BED. BROUGHT FOOD TO BEDSIDE. PATIENT IS UNABLE TO CALL FOR ASSISTANCE. BED ALARM IS ON.
[2024-09-14 20:42] VITALS: BP 148/74
[2024-09-15 02:46] VITALS: BP 145/76
--- NOTE | 2024-09-15 04:32 | NUR ---
SHIFT SUMMARY. PATIENT IS A&O TO SELF. PATIENT HAS HX OF DEMENTIA-PATIENT HAS NONSENSICAL SPEECH AT TIMES. PATIENT IS ABLE TO FOLLOW COMMADES. PATIENT IS A 2P MAX ASSIST. PATIENT BLADDER SCAN REVEALED JUST OVER 300-NO STRAIGHT CATH INDICATED. PATIENT IS PLEASANTLY CONFUSED. REPOSITIONED T/O SHIFT WITH MULTIPLE CHECKS PATIENT IS UNABLE TO USE CALL LIGHT. PATIENT TAKES MED WHOLE IN APPLE SAUCE. PATIENT IS C-DIFF POSITIVE-SMALL SMEAR OF BM TONIGHT WAS THICK WITH MINIMAL ODOR. BED IS LOCKED IN THE LOWEST POSITION WITH CALL LIGHT IN REACH. CARE IS ONGOING.
[2024-09-15 08:20] VITALS: BP 138/72
[2024-09-15 15:30] VITALS: BP 144/67
--- NOTE | 2024-09-15 17:34 | NUR ---
SHIFT SUMMARY: PATIENT A/O X 1. PATIENT IS PENDING PLACEMENT FOR SENIOR INSIGHT MANAGER CARE, PATIENT IS INCONTINENT HOWEVER DOES REQUIRES STRAIGHT CATH DUE TO RETENTION. PATIENT IS ABLE TO UNDERSTAND HIS NAME HOWEVER IS UNABLE TO RECALL WHERE HE IS. PATIENT HAS BED ALARM ON FOR SAFETY HE IS UNABLE TO CALL FOR ASSISTANCE.
[2024-09-15 19:52] VITALS: BP 125/75
--- NOTE | 2024-09-16 04:14 | NUR ---
SHIFT SUMMARY. NO ACUTE CHANGES. PATIENT IS ALERT TO SELF. COOPERATIVE WITH CARE. PATIENT IS INCONTINENT-BLADDER SCANS QSHIFT FOR RETENTION AND TO STRAIGHT CATH FOR VOLUME >400ML PER PROTOCOL. PATIENT DOES NOT USE CALL LIGHTS-ROUNDS DONE PER UNIT PROTOCOL. PATIENT ABLE TO ASSIST IN ROLLING AT TIMES. BED IS LOCKED IN THE LOWEST POSITION WITH CALL LIGHT IN REACH. CARE IS ONGOING.
[2024-09-16 04:42] VITALS: BP 138/93
[2024-09-16 07:59] VITALS: BP 141/116
[2024-09-16] MEDS ORDERED: Tamsulosin HCl 0.4 MG Cap PO SCH (12:00)
[2024-09-16 12:35] VITALS: BP 138/109
--- NOTE | 2024-09-16 16:04 | NUR ---
SHIFT NOTE MR BUTT IS ORIENTATED TO HIS NAME ONLY, ABLE TO FOLLOW SOME SIMPLE DIRECTIONS. TURNED AND REPOSITIONED Q2HRS AND PRN. +BM TODAY. INCONTINENT OF URINE SMALL VOLUME TODAY. AWAITING BLADDER SCAN. GOOD APPETITE AT LUNCH WITH ENCOURAGEMENT. BED LOW, CALL LIGHT IN REACH, BED ALARM ON.
[2024-09-16 16:25] VITALS: BP 127/84
[2024-09-16 18:29] VITALS: BP 126/61
[2024-09-16 19:28] VITALS: BP 161/75
[2024-09-17 03:35] VITALS: BP 155/73
--- NOTE | 2024-09-17 06:09 | NUR ---
SHIFT SUMMARY A&OX1. APHASIC. HAS DEMENTIA & IS RESISTIVE WITH CARE AT TIMES (GRABS/PUSHES/RESISTS). SKINE PALE,DRY. HEELS RED, BLANCHABLE. LEs WITH 1+EDEMA ELEVATED ON 2 PILLOWS , TOOK ELEQUIS AND OTHER H.S. MEDS ORDERED IN APPLESAUCE. BLADDER SCAN WAS 363 AT 2200 AND VOIDED MOD AMT INCONTINENTLY BEFORE AND AFTER THIS. AT 0400 BLADDER SCAN WAS 560. DURING STRAIGHT CATHETERIZATION AFTER APPROX 200 ML YELLOW URINE DRAINED VOIDED LG AMT INCONTINENTLY AROUND THE CATHETER. BMX3 (SMALL HARD X2 AND MOD HARD X1 THIS SHIFT. BED ALARM ON FOR SAFETY DUE TO HIGH FALL RISK R/T IMPAIRED MOBILITY, MEMORY LOSS COGMITIVE AND MOBILITY IMPAIRMENTS. SHIFT
[2024-09-17 07:55] VITALS: BP 132/71
[2024-09-17 16:17] VITALS: BP 146/75
[2024-09-17 17:47] LABS: Source, Urine Foley catheter
[2024-09-17 17:56] VITALS: BP 156/101
[2024-09-17 18:06] LABS: Appearance, Urine Hazy (Clear); Bilirubin, Urine Neg (Neg); Blood, Urine 2+ (Neg); Color, Urine Yellow (P-Yellow); Glucose Qualitative, Urine Neg (Neg); Ketones, Urine 1+ (Neg); Leukocyte Esterase, Urine Neg (Neg); Nitrite, Urine Neg (Neg); Protein, Urine 1+ (Neg); Specific Gravity, Urine 1.015 (1.003-1.022); Urobilinogen, Urine NORM (Normal)
[2024-09-17 18:24] LABS: Amorphous Light (0-Heavy); Bacteria Mod /hpf; Mucus Mod (0-Heavy); Squamous Epithelial Cells Rare /hpf (Few); Transitional Epithelial Cells Rare /hpf (0-Rare); White Blood Cells, Urine 0-2 /hpf (0-5)
--- NOTE | 2024-09-17 18:59 | NUR ---
SHIFT SUMMARY PT ORIENTED TO SELF. APHASIC AND HAS DEMENTIA. RESPONSIVE TO CARE AT TIMES (GRABS/PUSHES/RESISTS). PT REPORTS NO PAIN. PT ADMITTED DUE TO DVT. PT TAKES MEDS WHOLE WITH APPLESAUCE. PT ON ROOM AIR. PT TURNED Q2 HOURS. BED IN LOWEST POSITION. BLOOD PRESSURE A LITTLE ELEVATED THROUGH SHIFT, MIDODRINE HELD. WAS AT BEDSIDE TODAY. MEDS FAXED TO PREFERED PHARM TODAY SO COULD DUPLICATE MAKER TODAY. PLAN IS FOR DISCHARGE TOMORROW AND HAVE GERNEY TRANSPORT. INDWELLING HALEY WAS PLACED TODAY DURING SHIFT FOR DISCHARGE, DUE TO RETENTION. PT INC. OF BOWELS, HAD BM TODAY. CALL LIGHT IN REACH. BED ALARM ON. XRAY OF HAND COMPLETED TODAY.
[2024-09-17 20:23] VITALS: BP 148/74
[2024-09-18 04:13] VITALS: BP 145/80
[2024-09-18] MEDS ORDERED: ELIQUIS5 M2 PO (04:17)
[2024-09-18 09:27] VITALS: BP 114/75
[2024-09-18 13:30] VITALS: BP 137/76
--- NOTE | 2024-09-18 14:14 | NUR ---
DISCHARGE NOTE PT A&O TO SELF. 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 PT ADMITTED DUE TO DVT. PT CAPILLARY REFIL INTACT. PULSES PRESENT IN BLE. PT TOOK MEDS WHOLE WITH APPLESAUCE. PT DISCHARGED HOME WITH HOME HEALTH. PT EDUCATED ON ESTABLISHING CARE WITH PCP. EDUCATED ON URINARY CATH CARE AND SENT HOME WITH CATH CLEANING WIPES. EDUCATED ON ELIQUIS. STATED UNDERSTANDING PT WILL TAKE 10MG TONIGHT AND TOMORROW WILL START 5MG OF ELIQUIS BID. PT SENT WITH DSICHARGE INSTRUCTIONS. PT GOT PICKED UP BY TRANSPORT, PT TRANSPORTED VIA [facility]. PT IV REMOVED. PT SENT WITH INDWELLING URINARY CATHETER DUE TO RETENTION. MEDS WERE FAXED TO PHARMACY YESTERDAY, NOTIFIED RECEIVED MEDS. PT EATS ADEQUATE. PT INC. OF STOOL, CHANGED PRN. PT TURNED Q2 HRS THROUGH SHIFT.
== END 2024-09-18 13:55 | disposition home health service (06) | DRG 300 ==
LOC: ER 13:08 → MEDS 13:09 → ERHOLD 13:09 → MEDS 09-11 02:15 → ENPENDDIS 09-17 11:24 → MEDS 09-18 13:55
PROVIDERS: Emergency Medicine; Student in an Organized Health Care Education/Training Program; ADMIT Internal Medicine
DX: I82.411 Acute embolism and thrombosis of right femoral vein (principal); A04.72 Enterocolitis due to Clostridium difficile, not specified as recurrent; R47.01 Aphasia; R62.7 Adult failure to thrive; G20.A1 Parkinson's disease without dyskinesia, without mention of fluctuations; F02.80 Dementia in other diseases classified elsewhere, unspecified severity, without behavioral disturbance, psychotic disturbance, mood disturbance, and anxiety; G30.9 Alzheimer's disease, unspecified; E11.22 Type 2 diabetes mellitus with diabetic chronic kidney disease; N18.2 Chronic kidney disease, stage 2 (mild); F43.12 Post-traumatic stress disorder, chronic; I25.10 Atherosclerotic heart disease of native coronary artery without angina pectoris; K21.9 Gastro-esophageal reflux disease without esophagitis; E78.5 Hyperlipidemia, unspecified; E21.0 Primary hyperparathyroidism; I12.9 Hypertensive chronic kidney disease with stage 1 through stage 4 chronic kidney disease, or unspecified chronic kidney disease; E55.9 Vitamin D deficiency, unspecified; N40.0 Benign prostatic hyperplasia without lower urinary tract symptoms; M81.0 Age-related osteoporosis without current pathological fracture; I82.412 Acute embolism and thrombosis of left femoral vein; I82.431 Acute embolism and thrombosis of right popliteal vein; I82.432 Acute embolism and thrombosis of left popliteal vein; M19.90 Unspecified osteoarthritis, unspecified site; I95.1 Orthostatic hypotension; N21.0 Calculus in bladder; Z74.01 Bed confinement status; Z68.28 Body mass index [BMI] 28.0-28.9, adult; Z91.040 Latex allergy status; Z88.8 Allergy status to other drugs, medicaments and biological substances; Z79.899 Other long term (current) drug therapy; Z87.442 Personal history of urinary calculi; Z98.890 Other specified postprocedural states
CPT/HCPCS: 36415; 70450; 71045; 73120; 74177; 80053; 81001; 83690; 83735; 84484; 85025; 85520; 85610; 85730; 87086; 87324; 87428-QW; 87507; 92526; 92610; 93005; 93010; 93970; 96360-59; 96361-59; 96372-59; 96374; 97112; 97161; 97530; 99285-25; A9270; G0378; J1644; J1650; J7030; J7120; Q9967

== ENCOUNTER 2024-10-06 15:37 | Observation (INO) | payer OTHER ==
[~2024-10-06] VITALS: Ht 177.8 cm; Wt 83.4 kg
[~2024-10-06 15:37] MED LIST changes: +ELIQUIS5 M2 PO; +MIDO5 PO
[2024-10-06 17:57] LABS: BASOPHILS ABSOLUTE AUTO 0.05 K/mm3 (0.00-0.23); BASOPHILS PERCENT AUTO 1 % (0-2); EOSINOPHILS ABSOLUTE AUTO 0.23 K/mm3 (0.00-0.68); EOSINOPHILS PERCENT AUTO 2 % (0-6); Hemoglobin 11.8 g/dL (13.5-17.5); IMMATURE GRAN ABSOLUTE AUTO 0.04 K/mm3 (0.00-0.10); IMMATURE GRAN PERCENT AUTO 0 % (0-1); LYMPHOCYTES ABSOLUTE AUTO 1.45 K/mm3 (0.84-5.20); LYMPHOCYTES PERCENT AUTO 14 % (21-46); MONOCYTES PERCENT AUTO 11 % (4-13); Mean Corpuscular HGB 29.9 pg (26.0-34.0); Mean Corpuscular HGB Conc 34.7 g/dL (31.5-36.5); Mean Corpuscular Volume 86 fL (80-100); Mean Platelet Volume 8.5 fL (9.1-12.4); NEUTROPHILS ABSOLUTE AUTO 7.18 K/mm3 (1.96-9.15); NEUTROPHILS PERCENT AUTO 72 % (41-73); Platelet Count 432 K/mm3 (150-400); RDW Coefficient Variation 12.8 % (11.7-14.2); RDW Standard Deviation 40.1 fL (35.1-46.3); Red Blood Cell Count 3.95 M/mm3 (4.30-5.90); White Blood Cell Count 10.05 K/mm3 (4.00-11.30)
[2024-10-06] MEDS ORDERED: Apixaban 5 MG Tab PO ONE (18:00)
[2024-10-06 19:01] LABS: Alanine Aminotransfer (ALT/SGP <6 U/L (12-78); Albumin, Blood 2.2 g/dL (3.4-5.0); Albumin/Globulin Ratio 0.6 (0.8-1.8); Alk Phos 30 U/L (50-136); Anion Gap 8 mmol/L (3-11); Aspartate Aminotrans (AST/SGOT 20 U/L (12-37); Bilirubin, Total 0.9 mg/dL (0.1-1.0); Blood Urea Nitrogen 10 mg/dL (8-24); Bun/Creatinine Ratio 18.8 (12.0-20.0); CO2, Blood 28 mmol/L (21-32); Calcium, Blood 8.8 mg/dL (8.5-10.1); Chloride, Blood 103 mmol/L (98-108); Creatinine, Blood 0.53 mg/dL (0.60-1.20); Globulin, Blood 3.6 g/dL (2.2-4.0); Glomerular Filtration Rate 98 (60-); Glucose, Blood 131 mg/dL (70-99); Potassium, Blood 3.4 mmol/L (3.5-5.5); Sodium, Blood 136 mmol/L (136-145); Total Protein, Blood 5.8 g/dL (6.4-8.2)
[2024-10-06] MEDS ORDERED: NS 1,000 ML IV SCH ×2 (19:45→21:15)
[2024-10-06] MEDS ORDERED: HYDROCODONE-AC1 EA19 PO (20:08)
[2024-10-06] MEDS ORDERED: FLUDROCORTISON0.1 M2 PO (20:09)
[2024-10-06 23:17] LABS: Source, Urine Foley catheter
[2024-10-06 23:22] LABS: Appearance, Urine Hazy (Clear); Bilirubin, Urine Neg (Neg); Blood, Urine 5+ (Neg); Color, Urine Yellow (P-Yellow); Glucose Qualitative, Urine Neg (Neg); Ketones, Urine 2+ (Neg); Leukocyte Esterase, Urine 2+ (Neg); Nitrite, Urine Neg (Neg); Protein, Urine 2+ (Neg); Urobilinogen, Urine 1+ (Normal)
[2024-10-06 23:42] LABS: Bacteria Many /hpf; Red Blood Cells, Urine 50-100 /hpf (0-2); Squamous Epithelial Cells Not Seen /hpf (Few); White Blood Cells, Urine 25-50 /hpf (0-5)
[2024-10-07] MEDS ORDERED: CefTRIAXone Sodium 1,000 MG in NS 100 ML IV ONE (00:05)
[2024-10-07] MEDS ORDERED: FLU VACC TS2024-25(6MOS UP)/PF 45 MCG/0.5 ML SYRINGE IM ONE (00:25)
[2024-10-07] MEDS ORDERED: Ondansetron HCl 2 MG / ML 2ML Vial IV PRN (00:25)
[2024-10-07] MEDS ORDERED: Lactated Ringer's 1,000 ML IV SCH (01:00)
[2024-10-07 04:57] LABS: BASOPHILS ABSOLUTE AUTO 0.04 K/mm3 (0.00-0.23); BASOPHILS PERCENT AUTO 1 % (0-2); EOSINOPHILS ABSOLUTE AUTO 0.28 K/mm3 (0.00-0.68); EOSINOPHILS PERCENT AUTO 3 % (0-6); Hemoglobin 11.2 g/dL (13.5-17.5); IMMATURE GRAN ABSOLUTE AUTO 0.05 K/mm3 (0.00-0.10); IMMATURE GRAN PERCENT AUTO 1 % (0-1); LYMPHOCYTES ABSOLUTE AUTO 1.13 K/mm3 (0.84-5.20); LYMPHOCYTES PERCENT AUTO 13 % (21-46); MONOCYTES PERCENT AUTO 8 % (4-13); Mean Corpuscular HGB 29.1 pg (26.0-34.0); Mean Corpuscular HGB Conc 33.9 g/dL (31.5-36.5); Mean Corpuscular Volume 86 fL (80-100); Mean Platelet Volume 8.4 fL (9.1-12.4); NEUTROPHILS PERCENT AUTO 75 % (41-73); Platelet Count 438 K/mm3 (150-400); RDW Coefficient Variation 12.8 % (11.7-14.2); RDW Standard Deviation 39.5 fL (35.1-46.3); Red Blood Cell Count 3.85 M/mm3 (4.30-5.90)
[2024-10-07 05:23] LABS: Magnesium, Blood 1.9 mg/dL (1.6-2.4)
[2024-10-07 05:44] LABS: Alanine Aminotransfer (ALT/SGP <6 U/L (12-78); Albumin, Blood 2.2 g/dL (3.4-5.0); Albumin/Globulin Ratio 0.6 (0.8-1.8); Alk Phos 31 U/L (50-136); Anion Gap 8 mmol/L (3-11); Aspartate Aminotrans (AST/SGOT 16 U/L (12-37); Bilirubin, Total 0.9 mg/dL (0.1-1.0); Blood Urea Nitrogen 9 mg/dL (8-24); Bun/Creatinine Ratio 17.3 (12.0-20.0); CO2, Blood 28 mmol/L (21-32); Calcium, Blood 8.6 mg/dL (8.5-10.1); Chloride, Blood 107 mmol/L (98-108); Creatinine, Blood 0.52 mg/dL (0.60-1.20); Globulin, Blood 3.5 g/dL (2.2-4.0); Glomerular Filtration Rate 99 (60-); Glucose, Blood 120 mg/dL (70-99); Potassium, Blood 3.1 mmol/L (3.5-5.5); Sodium, Blood 140 mmol/L (136-145); Total Protein, Blood 5.7 g/dL (6.4-8.2)
[2024-10-07] MEDS ORDERED: Omeprazole 20 MG CapCR PO SCH (07:30)
[2024-10-07] MEDS ORDERED: Cholecalciferol 1000 Unit Tablet (=25MCG) PO SCH (09:00)
[2024-10-07] MEDS ORDERED: Finasteride 5 MG Tab PO SCH (09:00)
[2024-10-07] MEDS ORDERED: Atorvastatin 10 MG Tab PO SCH (09:00)
[2024-10-07] MEDS ORDERED: Beta-Carotene (A) W-C & E/Min 1 Tab PO SCH (09:00)
[2024-10-07] MEDS ORDERED: Lactobacil 2-S.Thermo-Bifido 1 1 Cap PO SCH (09:00)
[2024-10-07] MEDS ORDERED: Tamsulosin HCl 0.4 MG Cap PO SCH (09:00)
[2024-10-07] MEDS ORDERED: Apixaban 5 MG Tab PO SCH (09:00)
[2024-10-07] MEDS ORDERED: Levodopa/Carbidopa 100 / 25 MG Tab PO SCH (09:00)
[2024-10-07] MEDS ORDERED: Fludrocortisone Acetate 0.1 MG Tab PO SCH (09:00)
[2024-10-07] MEDS ORDERED: Memantine HCL 5 MG Tab PO SCH (09:00)
[2024-10-07] MEDS ORDERED: Midodrine 2.5 MG Tab PO SCH (09:00)
[2024-10-07] MEDS ORDERED: HYDROcodone 5-APAP 325 TAB PO PRN (10:10)
[2024-10-07] MEDS ORDERED: Potassium Chloride 40 MEQ in NS 250 ML IV ONE ×2 (10:10→14:40)
[2024-10-07 13:54] VITALS: BP 127/56
[2024-10-07] MEDS ORDERED: Potassium Chl 20MEQ/Water100ML 100 ML IV SCH (15:00)
[2024-10-07] MEDS ORDERED: PROBIOTIC1 EA13 PO (15:17)
--- NOTE | 2024-10-07 16:17 | NUR ---
ADMISSION NOTE MR BUTT WAS ADMITTED TO MEDICAL FLOOR FROM THE ER [facility] AFTERNOON. FAMILY HELPED WITH HIS ADMISSION INFORMATION PT IS ORIENTATED TO HIS FIRST NAME ONLY, NOT DATE, SITUATION OR YEAR. THIS IS BASELINE PER FAMILY. HE IS ON BEDREST AND HAS BEEN ON BEDREST AT HOME FOR SOME TIME. HE C/O PAIN WHEN REPOSITIONED, YELLS OUT, THEN QUICKLY QUIETENS AND CALMS. PAIN TO TOUCH TO LEGS/FEET AND SOMETIMES R ARM. HE ALSO HAS CHRONIC BACK PAIN PER . HE HAS MUTTERED SPEACH. HE WAS ABLE TO SIT UPRIGHT AND DO BEDSIDE SWALLOW EVAL WITH RN WHICH HE PASSED WITH NO COUGHING OR ANY TROUBLE SWALLOWING. HE WAS ABLE TO TAKE PO MEDS WITH WATER WITHOUT PROBLEM. GAVE TELEPHONE ORDER TO ADVANCE DIET TOLERATED, ORDERED REGULAR DIET FINGER FOOD FAMILY SAID THIS IS WHAT HE HAS AT HOME. FAMILY SAID HE DOES NOT FOLLOW DIEBETIC DIET SINCE HE HAS HAD SO MUCH WEIGHT LOSS OVER THE PAST YEAR. HE HAS HAD RECENT ~20LB WEIGHT LOSS PER . PT HAS SOME REDNESS TO COCCYX, NO SKIN BREAKDOWN, PRESSURE RELIEF WITH TURN AND PILLOW. BED LOW, CALL LIGHT IN REACH, BED ALARM ON.
[2024-10-07 17:51] VITALS: BP 113/58
[2024-10-07 19:17] VITALS: BP 102/89
[2024-10-07] MEDS ORDERED: CefTRIAXone Sodium 1,000 MG in NS 100 ML IV SCH (21:00)
[2024-10-08 04:25] VITALS: BP 114/44
--- NOTE | 2024-10-08 05:10 | NUR ---
SHIFT SUMMARY; PATIENT SLEPT IN LONG INTERVALS, PAINFUL WITH REPOSITIONING, MEDICATED WITH NORCO.DRANK ENTIRE ENSURE WITH THE NORCO, #2 LR COMPLETED JUST NOW. HALEY CRESENCIO CLEAR URINE.LEFT IV ALONE, DID NOT TRY TO GET UP. BLOOD CULTURES POSITIVE FOR GRP. + COCCI.
[2024-10-08 05:56] LABS: Bun/Creatinine Ratio 21.7 (12.0-20.0); Calcium, Blood 8.7 mg/dL (8.5-10.1); Creatinine, Blood 0.55 mg/dL (0.60-1.20); Magnesium, Blood 1.7 mg/dL (1.6-2.4); Potassium, Blood 3.2 mmol/L (3.5-5.5)
[2024-10-08 07:13] VITALS: BP 111/54
[2024-10-08] MEDS ORDERED: Potassium Chloride 20 MEQ TabCR PO ONE (07:35)
[2024-10-08] MEDS ORDERED: Vancomycin HCL 2,000 MG in NS 500 ML IV SCH (09:00)
[2024-10-08] MEDS ORDERED: Potassium Chloride 10 Meq Tablet SA PO ONE (11:15)
[2024-10-08 15:30] VITALS: BP 138/63
--- NOTE | 2024-10-08 18:18 | NUR ---
NO ACUTE CHANGES, MORE ALERT THIS AFTERNOON, SAW RIGHT POSTERIOR SHOULDER BLISTERS AND YEAST INFECTION, POWDER TO BE ORDERED, POSSIBLE HOSPICE AND TO [place] TOMORROW, PT WORKED WITH PATIENT, 6L O2 88% WITH EXERTION, FAMILY VIITED TODAY, MOSIT SCANT SPUTUMN COUGH, CLEARLS CONGESTION, CALL LIGHT WITH IN REACH, WILL RELAY TO PM RN
[2024-10-08 19:34] VITALS: BP 140/61
[2024-10-08] MEDS ORDERED: Vancomycin HCL 1,250 MG in NS 250 ML IV SCH (21:00)
[2024-10-08] MEDS ORDERED: NS 250 ML IV PRN (21:05)
--- NOTE | 2024-10-09 04:53 | NUR ---
FINANCIAL QUANTITATIVE ANALYST SUMMARY PT IS ORIENTED TO SELF. NO ACUTE CHANGES. PT IS MOSTLY NON VERBAL; HX OF BROCAS APHASIA. PT WILL YELL OUT (PAINFULLY) WHEN MOVED OR REPOSITIONED. PT MED WITH NORCO AT BEGINNING OF SHIFT. PT DECLINED NEXT AVAILABLE DOSE. PT HALEY IN PLACE; PATENT AND DRAINING TO GRAVITY. CALL LIGHT IS ACCESSIBLE. BED ALARM IN PLACE. REGULAR INTERVAL ROUNDING COMPLETE. CARE WILL CONTINUE UNTIL REPORT CAN BE GIVEN TO ONCOMING NURSE.
[2024-10-09 05:49] LABS: Bun/Creatinine Ratio 17.1 (12.0-20.0); Calcium, Blood 8.5 mg/dL (8.5-10.1); Creatinine, Blood 0.53 mg/dL (0.60-1.20); Magnesium, Blood 1.6 mg/dL (1.6-2.4); Potassium, Blood 2.9 mmol/L (3.5-5.5)
--- NOTE | 2024-10-09 06:01 | NUR ---
FAMILY CONTACT CALL FROM PT'S , CONSUELO. UPDATED ON PT CONDITION. NO ACUTE EVENTS. PT IS PAINFUL WITH MOVEMENT AND REFUSED SEVERAL ATTEMPTS TO GIVE PAIN MEDS THIS AM. BHARGAV STATES SHE WILL BE IN THIS MORNING. VOICED DESIRE FOR PT TO BE COMFORTABLE. ASSURED HOSPICE GOAL WILL BE TO AID IN PT'S COMFORT.
[2024-10-09 06:03] VITALS: BP 125/65
[2024-10-09] MEDS ORDERED: Potassium Chloride 40 MEQ in NS 250 ML IV ONE (06:40)
[2024-10-09 07:26] VITALS: BP 137/56
[2024-10-09] MEDS ORDERED: Potassium Chloride 20 MEQ TabCR PO ONE (07:40)
[2024-10-09] MEDS ORDERED: DOXY100 PO (08:30)
[2024-10-09] MEDS ORDERED: SPIR25 PO (08:30)
[2024-10-09] MEDS ORDERED: Spironolactone 25 MG Tab PO SCH (09:00)
[2024-10-09] MEDS ORDERED: Miconazole Nitrate 2% 85 GM PWD TOP PRN (09:35)
--- NOTE | 2024-10-09 11:08 | NUR ---
REPORT TO [facility], PATIENT LEFT VIA TRANSPORTATION, MEDICATED FOR PAIN WITH MOVEMENT, AND DAUGHTER AT BEDSIDE, ALL ACOMPANYING TO [facility]
== END 2024-10-09 10:58 ==
LOC: ER 15:37 → ERHOLD 15:38 → MEDS 10-07 13:39 → ENPENDDIS 10-09 08:46 → MEDS 10-09 10:58
PROVIDERS: Internal Medicine; Student in an Organized Health Care Education/Training Program; ADMIT Student in an Organized Health Care Education/Training Program
DX: R62.7 Adult failure to thrive (principal); G20.A1 Parkinson's disease without dyskinesia, without mention of fluctuations; G30.9 Alzheimer's disease, unspecified; F02.80 Dementia in other diseases classified elsewhere, unspecified severity, without behavioral disturbance, psychotic disturbance, mood disturbance, and anxiety; E11.22 Type 2 diabetes mellitus with diabetic chronic kidney disease; I12.9 Hypertensive chronic kidney disease with stage 1 through stage 4 chronic kidney disease, or unspecified chronic kidney disease; N18.30 Chronic kidney disease, stage 3 unspecified; G92.8 Other toxic encephalopathy; E87.6 Hypokalemia; R78.81 Bacteremia; N39.0 Urinary tract infection, site not specified; Z66 Do not resuscitate; Z88.8 Allergy status to other drugs, medicaments and biological substances; Z91.040 Latex allergy status; Z79.899 Other long term (current) drug therapy; N40.1 Benign prostatic hyperplasia with lower urinary tract symptoms; R33.8 Other retention of urine; F43.12 Post-traumatic stress disorder, chronic; I25.10 Atherosclerotic heart disease of native coronary artery without angina pectoris
CPT/HCPCS: 36415; 51702; 51798; 74176; 80048; 80053; 81001; 82947; 83605; 83735; 85025; 87040; 87077; 87086; 87186; 93005; 93010; 93971; 96361; 96365; 96366; 96367; 96375; 96376; 99285-25; A9270; G0378; J0696; J3370; J3480; J7030; J7040; J7050; J7120